=== PATIENT | female | born 1940 | race Caucasian/White ===

== ENCOUNTER → 2016-06-29 | Outpatient (CLI) | payer MEDICARE | END | disposition home or self-care (01) | LOC: LABWHC1 15:33 | PROVIDERS: ATTEND Internal Medicine Critical Care Medicine | DX: J44.9 Chronic obstructive pulmonary disease, unspecified (principal) | CPT/HCPCS: 36415; 71020; 82785; 94060; 95004; 99204 ==

== ENCOUNTER 2019-06-16 11:23 | Observation (INO) | payer MEDICARE, OTHER ==
[2019-06-16 11:59] LABS: Glucose,Whole Blood 112 mg/dL (75-99)
[2019-06-16] MEDS ORDERED: ALBUTEROL NEBULIZED 2.5 MG/3 ML INHALATION STA (11:59)
[2019-06-16] MEDS ORDERED: SODIUM CHLORIDE 0.9% 500 ML 500 ML IV STA (11:59)
[2019-06-16] MEDS ORDERED: IPRATROPIUM-ALBUTEROL 3 ML NEB INHALATION STA (11:59)
[2019-06-16] MEDS ORDERED: methylPREDNISolone SOD SUCCI 125 MG/2 ML VIAL IV STA (12:00)
[2019-06-16 12:17] LABS: Basophils % (A) 0 %; Eosinophils # (A) 0.1 k/uL (0-0.7); Eosinophils % (A) 1 %; HCT 36.5 % (34.0-46.0); Lymphocytes # (A) 1.1 k/uL (1.0-4.8); Lymphocytes % (A) 12 %; MCH 29.7 pg (25.0-35.0); Mean Platelet Volume 7.3; Monocytes # (A) 0.5 k/uL (0-1.0); Monocytes % (A) 6 %; Neutrophils % (A) 79 %; Platelet Count 289 k/uL (150-450); RBC 4.06 m/uL (3.80-5.40); RDW 13.6 % (11.5-15.5); WBC 8.8 k/uL (3.8-10.6)
[2019-06-16 12:26] LABS: ALT 18 U/L (4-34); AST 31 U/L (14-36); African American GFR (CKD) >90 (>60 ml/min/1.73 sqM); Albumin 3.9 g/dL (3.5-5.0); Alkaline Phosphatase 129 U/L (38-126); Anion Gap 11 mmol/L; Blood Urea Nitrogen 15 mg/dL (7-17); Carbon Dioxide 24 mmol/L (22-30); Chloride 101 mmol/L (98-107); Glucose 109 mg/dL (74-99); Magnesium 2.1 mg/dL (1.6-2.3); Non-African American GFR(CKD) >90 (>60 ml/min/1.73 sqM); Sodium 136 mmol/L (137-145)
[2019-06-16 12:29] LABS: Partial Thromboplastin Time 23.7 sec (22.0-30.0)
[2019-06-16 12:30] LABS: Potassium 4.1 mmol/L (3.5-5.1)
--- NOTE | 2019-06-16 12:30 | XR ---
EXAMINATION TYPE: XR chest 2V DATE OF EXAM: 06/16/2019 COMPARISON: Prior chest x-ray 06/29/2016 HISTORY: Weakness and headache, body aches TECHNIQUE: Frontal and lateral views of the chest are obtained. FINDINGS: There is no focal air space opacity, pleural effusion, or pneumothorax seen. The cardiac silhouette size is at the upper limit of normal possibly accentuated by rotation. The osseous struc tures are intact. There are overlying cardiac leads. Surgical clips are present over the anterior anisha st noted on the lateral view likely within the left breast. Aorta is dense. Arthropathy present in th e acromion clavicular joints. IMPRESSION: No acute cardiopulmonary process.
--- NOTE | 2019-06-16 12:34 | ED ---
General Adult HPI - General Chief complaint: Weakness Stated complaint: rt hand numbness, headache Time Seen by Provider: 06/16/19 11:39 Source: patient, RN notes reviewed, old records reviewed Mode of arrival: wheelchair Limitations: no limitations - History of Present Illness Initial comments: 79-year-old female presenting for evaluation of cough, URI symptoms, myalgias. Symptoms have been present for the past 4 days. She had sore throat, nasal co ngestion and productive cough. She experienced an episode of right-sided chest pain yesterday evening. This has resolved. She was initially taking Mucinex with minimal improvement in symptoms. She had 2 episodes of vomiting. No significant abdominal pain. No lower extremity pain or swelling. No history DVT or PE. No history of CAD. - Related Data Home Medications Medication Instructions Recorded Confirmed Anastrozole [Arimidex] 1 mg PO DAILY 06/16/19 06/16/19 Ascorbic Acid [Vitamin C] 500 mg PO DAILY 06/16/19 06/16/19 Atorvastatin [Lipitor] 10 mg PO DAILY 06/16/19 06/16/19 Cholecalciferol [Vitamin D3 (25 1,000 unit PO DAILY 06/16/19 06/16/19 Mcg = 1000 Iu)] Escitalopram [Lexapro] 10 mg PO DAILY 06/16/19 06/16/19 Fluocinolone Acetonide [Lidex Soln] 1 applic TOPICAL BID 06/16/19 06/16/19 Fluticasone/Salmeterol [Advair 1 puff INHALATION RT-BID PRN 06/16/19 06/16/19 500-50 Diskus] Losartan Potassium 50 mg PO DAILY 06/16/19 06/16/19 Montelukast [Singulair] 10 mg PO DAILY 06/16/19 06/16/19 Omeprazole 20 mg PO BID 06/16/19 06/16/19 Vit C/E/Zn/Coppr/Lutein/Zeaxan 1 cap PO BID 06/16/19 06/16/19 [Preservision Areds 2 Softgel] Vitamin B Complex 1 cap PO DAILY 06/16/19 06/16/19 Allergies Allergy/AdvReac Type Severity Reaction Status Date / Time codeine Allergy Unknown Verified 06/16/19 13:19 Review of Systems ROS Statement: Those systems with pertinent positive or pertinent negative responses have been documented in the HPI. ROS Other: All systems not noted in ROS Statement are negative. Past Medical History Past Medical History: Hyperlipidemia, Hypertension History of Any Multi-Drug Resistant Organisms: None Reported Past Surgical History: Appendectomy Additional Past Surgical History / Comment(s): lumpectomy Past Psychological History: No Psychological Hx Reported Smoking Status: Former smoker Past Alcohol Use History: None Reported Past Drug Use History: None Reported General Exam Limitations: no limitations General appearance: alert, in no apparent distress Head exam: Present: atraumatic, normocephalic Eye exam: Present: normal appearance, PERRL ENT exam: Absent: normal oropharynx (Mild pharyngeal erythema) Neck exam: Present: normal inspection, tenderness, full ROM. Absent: meningismus Respiratory exam: Present: decreased breath sounds. Absent: respiratory distress, wheezes, rales, rhonchi Cardiovascular Exam: Present: regular rate, normal rhythm GI/Abdominal exam: Present: soft. Absent: distended, tenderness Extremities exam: Present: normal inspection, normal capillary refill. Absent: pedal edema Neurological exam: Present: alert, oriented X3, CN II-XII intact. Absent: motor sensory deficit Psychiatric exam: Present: normal affect, normal mood Skin exam: Present: warm, dry, intact. Absent: cyanosis, diaphoretic Course Vital Signs 06/16/19 06/16/19 06/16/19 11:34 12:25 12:45 Temperature 98.3 F Pulse Rate 84 74 80 Respiratory 18 Rate Blood Pressure 120/60 O2 Sat by Pulse 95 Oximetry EKG Findings - EKG Comments: EKG Findings:: EKG: Normal sinus rhythm, rate of 81, MT interval 160, QRS duration 84, QTC [address] segment elevation. Medical Decision Making - Medical Decision Making 79-year-old female with cough dyspnea, URI symptoms, flulike symptoms. Influenza is negative. Chest x-ray negative for focal pneumonia. Patient has a normal CBC, normal CMP. She receives breathing treatment, steroids and IV fl uids on reevaluation persistent cough and dyspnea. Will be admitted for COPD exacerbation dehydration. Case discussed with the admitting physician Dr. Dennis. - Lab Data Result diagrams: 06/16/19 11:55 06/16/19 11:55 Lab Results 06/16/19 06/16/19 06/16/19 Range/Units 11:49 11:50 11:55 WBC 8.8 (3.8-10.6) k/uL RBC 4.06 (3.80-5.40) m/uL Hgb 12.0 (11.4-16.0) gm/dL Hct 36.5 (34.0-46.0) % MCV 90.0 (80.0-100.0) fL MCH 29.7 (25.0-35.0) pg MCHC 33.0 (31.0-37.0) g/dL RDW 13.6 (11.5-15.5) % Plt Count 289 (150-450) k/uL Neutrophils % 79 % Lymphocytes % 12 % Monocytes % 6 % Eosinophils % 1 % Basophils % 0 % Neutrophils # 7.0 (1.3-7.7) k/uL Lymphocytes # 1.1 (1.0-4.8) k/uL Monocytes # 0.5 (0-1.0) k/uL Eosinophils # 0.1 (0-0.7) k/uL Basophils # 0.0 (0-0.2) k/uL PT (9.0-12.0) sec INR (<1.2) APTT (22.0-30.0) sec Sodium (137-145) mmol/L Potassium (3.5-5.1) mmol/L Chloride (98-107) mmol/L Carbon Dioxide (22-30) mmol/L Anion Gap mmol/L BUN (7-17) mg/dL Creatinine (0.52-1.04) mg/dL Est GFR (CKD-EPI)AfAm (>60 ml/min/1.73 sqM) Est GFR (CKD-EPI)NonAf (>60 ml/min/1.73 sqM) Glucose (74-99) mg/dL POC Glucose (mg/dL) 112 H (75-99) mg/dL POC Glu [employer] Installer ID Mali Iniguez Plasma Lactic Acid Oliver (0.7-2.0) mmol/L Calcium (8.4-10.2) mg/dL Magnesium (1.6-2.3) mg/dL Total Bilirubin (0.2-1.3) mg/dL AST (14-36) U/L ALT (4-34) U/L Alkaline Phosphatase (38-126) U/L Troponin I (0.000-0.034) ng/mL Total Protein (6.3-8.2) g/dL Albumin (3.5-5.0) g/dL Influenza Type A RNA Not Detected (Not Detectd) Influenza Type B (PCR) Not Detected (Not Detectd) 06/16/19 06/16/19 06/16/19 Range/Units 11:55 11:55 11:55 WBC (3.8-10.6) k/uL RBC (3.80-5.40) m/uL Hgb (11.4-16.0) gm/dL Hct (34.0-46.0) % MCV (80.0-100.0) fL MCH (25.0-35.0) pg MCHC (31.0-37.0) g/dL RDW (11.5-15.5) % Plt Count (150-450) k/uL Neutrophils % % Lymphocytes % % Monocytes % % Eosinophils % % Basophils % % Neutrophils # (1.3-7.7) k/uL Lymphocytes # (1.0-4.8) k/uL Monocytes # (0-1.0) k/uL Eosinophils # (0-0.7) k/uL Basophils # (0-0.2) k/uL PT 10.0 (9.0-12.0) sec INR 1.0 (<1.2) APTT 23.7 (22.0-30.0) sec Sodium 136 L (137-145) mmol/L Potassium 4.1 (3.5-5.1) mmol/L Chloride 101 (98-107) mmol/L Carbon Dioxide 24 (22-30) mmol/L Anion Gap 11 mmol/L BUN 15 (7-17) mg/dL Creatinine 0.55 (0.52-1.04) mg/dL Est GFR (CKD-EPI)AfAm >90 (>60 ml/min/1.73 sqM) Est GFR (CKD-EPI)NonAf >90 (>60 ml/min/1.73 sqM) Glucose 109 H (74-99) mg/dL POC Glucose (mg/dL) (75-99) mg/dL POC Glu Home [employer] Installer ID Plasma Lactic Acid Oliver 0.9 (0.7-2.0) mmol/L Calcium 9.0 (8.4-10.2) mg/dL Magnesium 2.1 (1.6-2.3) mg/dL Total Bilirubin 1.0 (0.2-1.3) mg/dL AST 31 (14-36) U/L ALT 18 (4-34) U/L Alkaline Phosphatase 129 H (38-126) U/L Troponin I (0.000-0.034) ng/mL Total Protein 7.0 (6.3-8.2) g/dL Albumin 3.9 (3.5-5.0) g/dL Influenza Type A RNA (Not Detectd) Influenza Type B (PCR) (Not Detectd) 06/16/19 Range/Units 11:55 WBC (3.8-10.6) k/uL RBC (3.80-5.40) m/uL Hgb (11.4-16.0) gm/dL Hct (34.0-46.0) % MCV (80.0-100.0) fL MCH (25.0-35.0) pg MCHC (31.0-37.0) g/dL RDW (11.5-15.5) % Plt Count (150-450) k/uL Neutrophils % % Lymphocytes % % Monocytes % % Eosinophils % % Basophils % % Neutrophils # (1.3-7.7) k/uL Lymphocytes # (1.0-4.8) k/uL Monocytes # (0-1.0) k/uL Eosinophils # (0-0.7) k/uL Basophils # (0-0.2) k/uL PT (9.0-12.0) sec INR (<1.2) APTT (22.0-30.0) sec Sodium (137-145) mmol/L Potassium (3.5-5.1) mmol/L Chloride (98-107) mmol/L Carbon Dioxide (22-30) mmol/L Anion Gap mmol/L BUN (7-17) mg/dL Creatinine (0.52-1.04) mg/dL Est GFR (CKD-EPI)AfAm (>60 ml/min/1.73 sqM) Est GFR (CKD-EPI)NonAf (>60 ml/min/1.73 sqM) Glucose (74-99) mg/dL POC Glucose (mg/dL) (75-99) mg/dL POC Glu Home [employer] Installer ID Plasma Lactic Acid Oliver (0.7-2.0) mmol/L Calcium (8.4-10.2) mg/dL Magnesium (1.6-2.3) mg/dL Total Bilirubin (0.2-1.3) mg/dL AST (14-36) U/L ALT (4-34) U/L Alkaline Phosphatase (38-126) U/L Troponin I <0.012 (0.000-0.034) ng/mL Total Protein (6.3-8.2) g/dL Albumin (3.5-5.0) g/dL Influenza Type A RNA (Not Detectd) Influenza Type B (PCR) (Not Detectd) Disposition Clinical Impression: Dehydration, COPD (chronic obstructive pulmonary disease) Disposition: ADMITTED IP TO THIS HOSP Condition: Stable Is patient prescribed a controlled substance at d/c from ED?: No Referrals: Marcell Jackson DO [Primary Care Provider] - 1-2 days Decision to Admit Reason: Admit from EC Decision Date: 06/16/19 Decision Time: 13:34
[2019-06-16] MEDS ORDERED: IPRATROPIUM-ALBUTEROL 3 ML NEB INHALATION PRN (13:29)
[2019-06-16] MEDS: SODIUM CHLORIDE 0.9% 1,000 ML IV SCH (13:52)
[2019-06-16] MEDS ORDERED: LEVOFLOXACIN 500 MG TAB PO SCH (14:00)
[2019-06-16] MEDS ORDERED: ACETAMINOPHEN TAB 325 MG TAB PO PRN (15:42)
[2019-06-16] MEDS: IPRATROPIUM-ALBUTEROL 3 ML NEB INHALATION SCH ×2 (15:59→19:58)
[2019-06-16 17:00] LABS: Glucose,Whole Blood 151 mg/dL (75-99)
[2019-06-16] MEDS: VIT A,C & E-LUTEIN-MINERALS 1 EACH TAB PO SCH (20:39)
--- NOTE | 2019-06-16 23:21 | P.HPIM ---
History of Present Illness H&P Date: 06/16/19 Chief Complaint: Weak and tired History of presenting complaint: This is a very pleasant [address] Jackson. Chronic stable medical conditions include hypertension, hyperlipidemia, depression, asthma. Patient returned from [place] 10 days ago. Following day she started getting a headache and the following day she felt tired the following day she was ruddy ested in the chest with the cough and some mucus production having significant lower nausea. Started having fever and chills. Body was aching. Also sore throat. [place] totally tired rundown but decreased oral intake. Feeling exhausted. Came to the ER given IV fluids which she started feeling much better. Review of systems: GEN.: Tired EYES: None HEENT: None NECK: None RESPIRATORY: As above CARDIOVASCULAR: None GASTROINTESTINAL: None GENITOURINARY: None MUSCULOSKELETAL: [Muscle achiness LYMPHATICS: None HEMATOLOGICAL: None PSYCHIATRY: None NEUROLOGICAL: None Past medical history to include: Hypertension, hyperlipidemia, depression, left-sided breast cancer treated with radiation treatment and surgery asthma Social history: This is a granddaughter, smoked up to 3 packs a day for 40 years stopped about 20 years ago. No alcohol. Physical examination: VITAL SIGNS: 98.3, 84, 18, 120/60, 95% on room air GENERAL: BMI 30.8 laying in bed awake. EYES: Pupils equal. Conjunctiva normal. HEENT: External appearance of nose and ears normal, oral cavity grossly normal. NECK: JVD not raised; masses not palpable. HEART: First and second heart sounds are normal; no edema. LUNGS: Respiratory rate normal; decreased breath sounds. ABDOMEN: Soft, nontender, liver spleen not palpable, no masses palpable. PSYCH: [Alert and oriented x3; mood and affect retired l. NEUROLOGICAL: Cranial nerves grossly intact; no facial asymmetry, power and sensation grossly intact. LYMPHATICS: No lymph nodes palpable in the axilla and neck INVESTIGATIONS, reviewed in the clinical context: White count 8.8 hemoglobin 12 platelets 29 potassium 4.1 creatinine 0.55 Influenza type A and type B both negative EKG tracing personally reviewed by me-normal sinus rhythm Chest x-ray film personally reviewed by me-no obvious infiltrate Assessment: -This is a patient is at 6 days of fever /chills headaches tired congested cough mucus production nausea and decreased appetite fever and chills. Describing a viral syndrome. Patient's possibly no having opposed well syndrome. Is feeling better with IV fluids. Currently no fever no white count. Continue antibiotics as patient already feeling better with IV fluids. Patient denied exposure to insects or insect bites. Patient is mostly at home at her nephew's place and [place]. Only went out for dinner twice. -Essential hypertension -Hyperlipidemia -Depression otherwise specified -Mild persistent asthma -Clinical dehydration Plan: Home medications to be resumed IV fluids to continue. Lovenox for DVT prophylaxis. Patient is feeling much better with IV fluids. Encouraged to ambulate. Past Medical History Past Medical History: Hyperlipidemia, Hypertension History of Any Multi-Drug Resistant Organisms: None Reported Past Surgical History: Appendectomy Additional Past Surgical History / Comment(s): lumpectomy left breast for cancer finished with radiation treatments 2017. Past Anesthesia/Blood Transfusion Reactions: No Reported Reaction Past Psychological History: No Psychological Hx Reported Smoking Status: Former smoker Past Alcohol Use History: None Reported Past Drug Use History: None Reported - Past Family History Father Family Medical History: Cancer Additional Family Medical History / Comment(s): lung ca Mother Additional Family Medical History / Comment(s): parkinson Sister(s) Family Medical History: Cancer Additional Family Medical History / Comment(s): 9 siblings, 3 have . 2 sist ers had breast CA, one sister had spinal CA. one sister had lung CA. one Brother dies of parkinsons, one brother has kidney problems and heart failure aicd/pacer. Medications and Allergies Home Medications Medication Instructions Recorded Confirmed Type Anastrozole [Arimidex] 1 mg PO DAILY 06/16/19 06/16/19 History Ascorbic Acid [Vitamin C] 500 mg PO DAILY 06/16/19 06/16/19 History Atorvastatin [Lipitor] 10 mg PO DAILY 06/16/19 06/16/19 History Cholecalciferol [Vitamin D3 (25 1,000 unit PO DAILY 06/16/19 06/16/19 History Mcg = 1000 Iu)] Escitalopram [Lexapro] 10 mg PO DAILY 06/16/19 06/16/19 History Fluocinolone Acetonide [Lidex Soln] 1 applic TOPICAL BID 06/16/19 06/16/19 History Fluticasone/Salmeterol [Advair 1 puff INHALATION RT-BID PRN 06/16/19 06/16/19 History 500-50 Diskus] Losartan Potassium 50 mg PO DAILY 06/16/19 06/16/19 History Montelukast [Singulair] 10 mg PO DAILY 06/16/19 06/16/19 History Omeprazole 20 mg PO BID 06/16/19 06/16/19 History Vit C/E/Zn/Coppr/Lutein/Zeaxan 1 cap PO BID 06/16/19 06/16/19 History [Preservision Areds 2 Softgel] Vitamin B Complex 1 cap PO DAILY 06/16/19 06/16/19 History Allergies Allergy/AdvReac Type Severity Reaction Status Date / Time codeine Allergy Unknown Verified 06/16/19 13:19 Physical Exam Vitals: Vital Signs Temp Pulse Pulse Resp BP BP Pulse Ox 06/16/19 20:08 78 06/16/19 19:58 77 06/16/19 16:11 77 06/16/19 15:59 76 06/16/19 14:47 99.2 F 83 18 107/50 94 L 06/16/19 13:52 88 16 118/56 99 06/16/19 12:45 80 06/16/19 12:25 74 06/16/19 11:34 98.3 F 84 18 120/60 95 Intake and Output 06/16/19 06/16/19 06/17/19 14:59 22:59 06:59 Intake Total 540 Balance 540 Intake: Oral 540 Other: Weight 86.636 kg Results CBC & Chem 7: 06/16/19 11:55 06/16/19 11:55 Labs: Abnormal Lab Results - Last 24 Hours (Table) 06/16/19 06/16/19 06/16/19 Range/Units 11:49 11:55 16:50 Sodium 136 L (137-145) mmol/L Glucose 109 H (74-99) mg/dL POC Glucose (mg/dL) 112 H 151 H (75-99) mg/dL Alkaline Phosphatase 129 H (38-126) U/L Thrombosis Risk Factor Assmnt - Choose All That Apply Each Risk Factor Represents 3 Points: Age 75 years or older Thrombosis Risk Factor Assessment Total Risk Factor Score: 3 Thrombosis Risk Factor Assessment Level: Moderate Risk
[2019-06-17] MEDS: SODIUM CHLORIDE 0.9% 1,000 ML IV SCH (02:38)
[2019-06-17 07:20] VITALS: BP 124/63; RESP 18; TEMP 98.2
[2019-06-17] MEDS ORDERED: PANTOPRAZOLE 40 MG TABLET PO SCH (07:30)
[2019-06-17] MEDS: VIT A,C & E-LUTEIN-MINERALS 1 EACH TAB PO SCH (07:50)
[2019-06-17] MEDS: IPRATROPIUM-ALBUTEROL 3 ML NEB INHALATION SCH ×2 (08:59→12:08)
[2019-06-17] MEDS ORDERED: ATORVASTATIN 10 MG TAB PO SCH (09:00)
[2019-06-17] MEDS ORDERED: ENOXAPARIN 40 MG/0.4 ML SYRINGE SQ SCH (09:00)
[2019-06-17] MEDS ORDERED: predniSONE 20 MG TAB PO SCH (09:00)
[2019-06-17] MEDS ORDERED: NON FORMULARY DRUG (Vitamin B Complex [Vitamin B Complex] 1 CAP) PO SCH (09:00)
[2019-06-17] MEDS ORDERED: MONTELUKAST 10 MG TAB PO SCH (09:00)
[2019-06-17] MEDS ORDERED: ANASTROZOLE 1 MG TAB PO SCH (09:00)
[2019-06-17] MEDS ORDERED: ESCITALOPRAM 10 MG TAB PO SCH (09:00)
[2019-06-17] MEDS ORDERED: ASCORBIC ACID 500 MG TAB PO SCH (09:00)
[2019-06-17] MEDS ORDERED: CHOLECALCIFEROL 1,000 UNIT TAB PO SCH (09:00)
[2019-06-17] MEDS ORDERED: LOSARTAN 50 MG TAB PO SCH (09:00)
[2019-06-17 12:18] VITALS: PULSE 77
--- NOTE | 2019-06-17 22:41 | P.DS ---
Providers Date of admission: 06/16/19 13:29 Expected date of discharge: 06/17/19 Attending physician: Darion Dennis Primary care physician: Marcell Christianson [facility] Course: Chief Complaint: Weak and tired History of presenting complaint: This is a very pleasant [address] Jackson. Chronic stable medical conditions include hypertension, hyperlipidemia, depression, asthma. Patient returned from [place] 10 days ago. Following day she started getting a headache and the following day she felt tired the following day she was congested in the chest with the cough and some mucus production having significant lower nausea. Started having fever and chills. Body was aching. Also sore throat. [place] totally tired rundown but decreased oral intake. Feeling exhausted. Came to the ER given IV fluids which she started feeling much better. Admitted with a diagnosis of acute viral syndrome. Responded well to IV fluids. No need was felt antibiotics. By The time of discharge.-Back to baseline. Up and about. Tolerated diet. symptoms are completely resolved. Discussed in detail the patient. Including some mild asthma exacerbation Discussion and discharge planning more than 35 minutes Physical examination: VITAL SIGNS: 98.2, 72, 18, 124/63, 94% on room air GENERAL: Sitting up, comfortable. EYES: Pupils equal. Conjunctiva normal. HEENT: External appearance of nose and ears normal, oral cavity grossly normal. NECK: JVD not raised; masses not palpable. HEART: First and second heart sounds are normal; no edema. LUNGS: Respiratory rate normal; decreased breath sounds. ABDOMEN: Soft, nontender, liver spleen not palpable, no masses palpable. PSYCH: [Alert and oriented x3; mood and affect retired l. INVESTIGATIONS, reviewed in the clinical context: White count 8.8 hemoglobin 12 platelets 29 potassium 4.1 creatinine 0.55 Influenza type A and type B both negative EKG tracing personally reviewed by me-normal sinus rhythm Chest x-ray film personally reviewed by me-no obvious infiltrate Assessment: -Acute viral syndrome with systemic features. -Essential hypertension -Hyperlipidemia -Depression otherwise specified -Mild persistent asthma-exacerbation -Clinical dehydration Disposition: Home Patient Condition at Discharge: Stable Plan - Discharge Summary Discharge Rx Participant: No New Discharge Prescriptions: New Ipratropium [place] [Atrovent Hfa] 2 puff INHALATION TID #1 inhaler predniSONE 0 mg PO DIRECTED #12 tab Albuterol Inhaler [Ventolin Hfa Inhaler] 1 - 2 puff INHALATION RT-Q6H PRN #1 inhaler PRN Reason: Wheezing Continue Anastrozole [Arimidex] 1 mg PO DAILY Vit C/E/Zn/Coppr/Lutein/Zeaxan [Preservision Areds 2 Softgel] 1 cap PO BID Cholecalciferol [Vitamin D3 (25 Mcg = 1000 Iu)] 1,000 unit PO DAILY Ascorbic Acid [Vitamin C] 500 mg PO DAILY Omeprazole 20 mg PO BID Montelukast [Singulair] 10 mg PO DAILY Losartan Potassium 50 mg PO DAILY Fluocinolone Acetonide [Lidex Soln] 1 applic TOPICAL BID Escitalopram [Lexapro] 10 mg PO DAILY Atorvastatin [Lipitor] 10 mg PO DAILY Fluticasone/Salmeterol [Advair 500-50 Diskus] 1 puff INHALATION RT-BID PRN PRN Reason: Shortness Of Breath Vitamin B Complex 1 cap PO DAILY Discharge Medication List Anastrozole [Arimidex] 1 mg PO DAILY 06/16/19 [History] Ascorbic Acid [Vitamin C] 500 mg PO DAILY 06/16/19 [History] Atorvastatin [Lipitor] 10 mg PO DAILY 06/16/19 [History] Cholecalciferol [Vitamin D3 (25 Mcg = 1000 Iu)] 1,000 unit PO DAILY 06/16/19 [History] Escitalopram [Lexapro] 10 mg PO DAILY 06/16/19 [History] Fluocinolone Acetonide [Lidex Soln] 1 applic TOPICAL BID 06/16/19 [History] Fluticasone/Salmeterol [Advair 500-50 Diskus] 1 puff INHALATION RT-BID PRN 06/16/19 [History] Losartan Potassium 50 mg PO DAILY 06/16/19 [History] Montelukast [Singulair] 10 mg PO DAILY 06/16/19 [History] Omeprazole 20 mg PO BID 06/16/19 [History] Vit C/E/Zn/Coppr/Lutein/Zeaxan [Preservision Areds 2 Softgel] 1 cap PO BID 06/16/19 [History] Vitamin B Complex 1 cap PO DAILY 06/16/19 [History] Albuterol Inhaler [Ventolin Hfa Inhaler] 1 - 2 puff INHALATION RT-Q6H PRN #1 inhaler 06/17/19 [Rx] Ipratropium [place] [Atrovent Hfa] 2 puff INHALATION TID #1 inhaler 06/17/19 [Rx] predniSONE 0 mg PO DIRECTED #12 tab 06/17/19 [Rx] Follow up Appointment(s)/Referral(s): Marcell Jackson DO [Primary Care Provider] - 1-2 days (office will call you with date and time.) Patient Instructions/Handouts: COPD (Chronic Obstructive Pulmonary Disease) (DC) Discharge Disposition: HOME SELF-CARE
== END 2019-06-17 12:51 | disposition home or self-care (01) ==
LOC: EC 11:23 → 6NMEDSUR 13:29
PROVIDERS: ADMIT Hospitalist; ATTEND Hospitalist
DX: B34.9 Viral infection, unspecified (principal); E86.0 Dehydration; J45.30 Mild persistent asthma, uncomplicated; J44.9 Chronic obstructive pulmonary disease, unspecified; I10 Essential (primary) hypertension; E78.5 Hyperlipidemia, unspecified; Z87.891 Personal history of nicotine dependence; F32.9 Major depressive disorder, single episode, unspecified; Z90.49 Acquired absence of other specified parts of digestive tract; Z85.3 Personal history of malignant neoplasm of breast; Z92.3 Personal history of irradiation; Z79.51 Long term (current) use of inhaled steroids; Z79.899 Other long term (current) drug therapy; Z88.5 Allergy status to narcotic agent; Z80.1 Family history of malignant neoplasm of trachea, bronchus and lung; Z80.3 Family history of malignant neoplasm of breast; Z84.1 Family history of disorders of kidney and ureter; Z82.49 Family history of ischemic heart disease and other diseases of the circulatory system; Z82.0 Family history of epilepsy and other diseases of the nervous system
CPT/HCPCS: 96361; 96372; 96374; 99285; 36415; 94640 ×4; 93005; 80053; 83605; 83735; 84484; 85025; 85610; 85730; 87502; 71046; G0378 ×2; J2930; J1650; S0170; J7512

== ENCOUNTER → 2024-03-06 | Outpatient (CLI) | payer MEDICARE ==
--- NOTE | 2024-03-09 21:57 | PE ---
EXAMINATION TYPE: PET CT fusion skull to thigh DATE OF EXAM: 03/06/2024 COMPARISON: No recent pertinent CT Prior PET/CT: No prior at this location CLINICAL INDICATION: Female, 84 years old with history of C50.812 BREAST CANCER, TECHNIQUE: Following the intravenous administration of 10.98 mCi of F-18 FDG, whole body images are performed from the skull base to the midthigh. Images are reviewed on the computer in the coronal, a xial, and sagittal planes. Reconstructed rotating images are created on independent workstation and reviewed on the computer. A localization and attenuation correction CT is performed in conjunction with the PET scan. DLP: 527.76 mGycm SCAN: Initial Blood glucose: 103 mg/dL Average Mediastinum SUV: 3.29 Average Liver SUV: 3.73 FINDINGS: NECK: No suspicious uptake THORAX: No suspicious uptake ABDOMEN: No suspicious uptake PELVIS: There is a punctate area of uptake just anterior to the left of the pubic symphysis, image 21 9, SUV 4.04. Small lymph node is not excluded. OSSEOUS STRUCTURES: No suspicious uptake LOCALIZATION CT: Patient has a left mastectomy. The punctate area of uptake near the pubic symphysis may be within musculature. COMPARISON: IMPRESSION: 1. No suspicious uptake to suggest recurrent or metastatic breast cancer. 2. Small punctate area near the pubic symphysis may be within musculature [facility], , 03/09/2024 9:54 PM
== END | disposition home or self-care (01) ==
LOC: RADPETMAIN 11:09
PROVIDERS: ATTEND Internal Medicine Hematology & Oncology
DX: C50.812 Malignant neoplasm of overlapping sites of left female breast (principal)
CPT/HCPCS: 78815; A9552

== ENCOUNTER 2024-09-13 21:05 | Inpatient (IN) | payer MEDICARE ==
[2024-09-13] MEDS: SODIUM CHLORIDE 0.9% 1,000 ML IV ONE (21:30)
--- NOTE | 2024-09-13 21:31 | ED ---
Dizziness HPI - General Chief Complaint: Syncope Stated Complaint: Syncope,ELOISA Time Seen by Provider: 09/13/24 21:09 Source: EMS Mode of arrival: EMS Limitations: physical limitation - History of Present Illness Initial Comments: This patient is an 84-year-old woman brought by EMS to have evaluation for not feeling well. Patient is not able to give much history. She states that she just does not feel well. When further questioned she will begin a sentence and then taper off and state "I just do not feel well." The patient does complain of dyspnea. She is denying pains other than some generalized headache. She states that she has not been feeling well since she had left the hospital. Her symptoms worsened tonight in the evening while she had been sitting in her chair at home. She had been admitted at a different hospital for hyponatremia and been discharged last week. She denies focal weakness. She has nausea but has not had vomiting. History is otherwise limited as patient not participating in history and physical. MD Complaint: near syncope -: hour(s) Timing: gradual onset Description: near-syncope Severity: severe Worsens With: movement Associated Symptoms: shortness of breath, other (Headache) - Related Data Home Medications Medication Instructions Recorded Confirmed Montelukast [Singulair] 10 mg PO HS 06/16/19 09/14/24 Omeprazole 20 mg PO AC-BID 06/16/19 09/14/24 Vit C/E/Zn/Coppr/Lutein/Zeaxan 1 cap PO BID 06/16/19 09/14/24 [Preservision Areds 2 Softgel] Abemaciclib [Verzenio] 100 mg PO BID 09/14/24 09/14/24 Calcium 2,000mg 2,000 mg PO HS 09/14/24 09/14/24 Cholecalciferol (Vitamin D3) 50 mcg PO DAILY 09/14/24 09/14/24 [Vitamin D3 (50 Mcg = 2000 Iu)] DULoxetine HCL [Cymbalta] 30 mg PO BID 09/14/24 09/14/24 Ezetimibe [Zetia] 10 mg PO DAILY 09/14/24 09/14/24 Fluocinonide 0.05% Solution 1 applic TOPICAL HS 09/14/24 09/14/24 Fulvestrant 500 mg IM Q35D 09/14/24 09/16/24 Losartan Potassium 100 mg PO DAILY 09/14/24 09/14/24 Melatonin 10 mg PO HS 09/14/24 09/14/24 Ondansetron Odt [Zofran ODT] 8 mg PO DAILY 09/14/24 09/14/24 Previous Rx's Medication Instructions Recorded Acetaminophen Tab [Tylenol] 650 mg PO Q6HR PRN tab 09/18/24 Lidocaine 4% Patch 1 patch TOPICAL DAILY #30 patch 09/18/24 cefuroxime axetiL [Ceftin] 500 mg PO BID 7 Days #14 tab 09/18/24 Sodium Chloride Tab 1 gm PO BID #6 tablet 09/19/24 Sodium Chloride Tab 1 gm PO BID #6 tablet 09/19/24 predniSONE [Deltasone] 20 mg PO BID #8 tab 09/19/24 predniSONE [Deltasone] 20 mg PO BID #8 tab 09/19/24 Allergies Allergy/AdvReac Type Severity Reaction Status Date / Time codeine Allergy Unknown Verified 09/14/24 09:08 Review of Systems ROS Statement: Those systems with pertinent positive or pertinent negative responses have been documented in the HPI. ROS Other: All systems not noted in ROS Statement are negative. Constitutional: Reports: weakness. Denies: fever, chills Eyes: Denies: eye pain Respiratory: Reports: dyspnea. Denies: cough Cardiovascular: Denies: chest pain Gastrointestinal: Reports: nausea. Denies: abdominal pain, vomiting Musculoskeletal: Denies: back pain Neurological: Reports: headache. Denies: weakness Past Medical History Past Medical History: Hyperlipidemia, Hypertension History of Any Multi-Drug Resistant Organisms: None Reported Past Surgical History: Appendectomy Additional Past Surgical History / Comment(s): lumpectomy left breast for cancer finished with radiation treatments 2017. Past Anesthesia/Blood Transfusion Reactions: No Reported Reaction Past Psychological History: No Psychological Hx Reported Past Alcohol Use History: None Reported Past Drug Use History: None Reported - Past Family History Father Family Medical History: Cancer Additional Family Medical History / Comment(s): lung ca Mother Additional Family Medical History / Comment(s): parkinson Sister(s) Family Medical History: Cancer Additional Family Medical History / Comment(s): 9 siblings, 3 have . 2 sisters had breast CA, one sister had spinal CA. one sister had lung CA. one Brother dies of parkinsons, one brother has kidney problems and heart failure aicd/pacer. General Exam Limitations: no limitations General appearance: alert, in no apparent distress Head exam: Present: atraumatic, normocephalic Eye exam: Present: normal appearance, PERRL, EOMI. Absent: scleral icterus, conjunctival injection ENT exam: Present: mucous membranes dry Neck exam: Present: normal inspection, full ROM. Absent: tenderness Respiratory exam: Present: normal lung sounds bilaterally. Absent: respiratory distress, wheezes, rales, rhonchi, stridor, accessory muscle use Cardiovascular Exam: Present: regular rate, normal rhythm, normal heart sounds. Absent: systolic murmur, diastolic murmur, rubs, gallop GI/Abdominal exam: Present: soft. Absent: distended, tenderness, guarding, rebound, rigid, mass Extremities exam: Present: normal inspection, normal capillary refill. Absent: pedal edema, calf tenderness Back exam: Present: normal inspection. Absent: CVA tenderness (R), CVA te nderness (L), vertebral tenderness Neurological exam: Present: alert, oriented X3. Absent: motor sensory deficit Skin exam: Present: warm, dry, intact, normal color. Absent: rash Course Vital Signs 09/13/24 09/13/24 09/14/24 21:16 23:30 00:45 Temperature 98.4 F 100.5 F H Pulse Rate 72 68 73 Respiratory 20 18 16 Rate Blood Pressure 108/53 102/66 98/67 O2 Sat by Pulse 99 98 99 Oximetry 09/14/24 09/14/24 09/14/24 01:15 02:00 03:30 Temperature 99.9 F H Pulse Rate 99 93 99 Respiratory 20 20 22 Rate Blood Pressure 123/53 124/77 121/57 O2 Sat by Pulse 98 98 96 Oximetry 09/14/24 09/14/24 09/14/24 05:00 06:00 08:07 Temperature 98.7 F 98.3 F Pulse Rate 94 104 H 93 Respiratory 20 13 20 Rate Blood Pressure 93/42 115/51 116/53 O2 Sat by Pulse 99 94 L 96 Oximetry 09/14/24 09/14/24 09:30 10:28 Temperature 98.4 F Pulse Rate 95 97 Respiratory 20 20 Rate Blood Pressure 116/56 129/65 O2 Sat by Pulse 96 96 Oximetry EKG Findings - EKG Results: EKG: interpreted by ERMD, sinus rhythm (With occasional PVC), normal axis, normal QRS EKG shows: tachycardia (Rate 108 bpm) - Blocks, Olden, Hypertrophy, ST Abn: Repolarization changes or abnormalities: nonspecific abnormality, ST segment, and/or T wave Procedures - Sepsis Sepsis Focused Exam #1 Sepsis Focused Exam Date: 09/14/24 Sepsis Focused Exam Time: 03:30 Sepsis Focused Exam Complete: Yes Vital Signs & RN Notes Reviewed: Yes Capillary Refill: < 2 Seconds: Fingers Peripheral Pulses: Normal: Radial (R) Skin Color: Normal for Patient Respiratory Exam: normal lung sounds Cardiovascular Exam: regular rate, normal rhythm Medical Decision Making - Medical Decision Making The patient had CT scan of the brain that I interpreted as negative for acute intracranial hemorrhage, no mass effect or midline shift. The patient had chest x-ray that I interpreted as negative for acute infiltrate, and pneumothorax, congestive heart failure. The patient had CT scan of the chest that I interpreted as negative for acute pulmonary embolism. Was pt. sent in by a medical professional or institution ([facility], [employer], urgent care, hospital, or assisted...) When possible be specific @ -[No] Did you speak to anyone other than the patient for history (EMS, parent, family, police, friend...)? What history was obtained from this source @ -[No] Did you review nursing and triage notes (agree or disagree)? Why? @ -[I reviewed and agree with nursing and triage notes] Were old charts reviewed (outside hosp., previous admission, EMS record, old EKG, old radiological studies, urgent care reports/EKG's, assisted records)? Report findings @ -[No old charts were reviewed] Differential Diagnosis (chest pain, altered mental status, abdominal pain women, abdominal pain men, vaginal bleeding, weakness, fever, dyspnea, syncope, headache, dizziness, GI bleed, back pain, seizure, CVA, palpatations, mental health, musculoskeletal)? @ -[not applicable] EKG interpreted by me (3pts min.). @ -[I interpreted as above] X-rays interpreted by me (1pt min.). @ -[I interpreted as above CT interpreted by me (1pt min.). @ -[I interpreted as above U/S interpreted by me (1pt. min.). @ -[None done] What testing was considered but not performed or refused? (CT, X-rays, U/S, labs)? Why? @ -[None] What meds were considered but not given or refused? Why? @ -[None] Did you discuss the management of the patient with other professionals (professionals i.e. , PA, [employer] DEVELOPER, lab, RT, psych nurse, vp digital marketing social media and crm, mortar mixer, teacher, tourist information officer, correctional counselor/case manager)? Give summary @ -[Case discussed with admitting physician and treatment recommendations incorporated Was smoking cessation discussed for >3mins.? @ -[No] Was critical care preformed (if so, how long)? @ -[Yes, 35 minutes Were there social determinants of health that impacted care today? How? (Homelessness, low income, unemployed, alcoholism, drug addiction, transportation, low edu. Level, literacy, decrease access to med. care, care home, rehab)? @ -[No] Was there de-escalation of care discussed even if they declined (Discuss DNR or withdrawal of care, Hospice)? DNR status @ -[No] What co-morbidities impacted this encounter? (DM, HTN, Smoking, COPD, CAD, Cancer, CVA, ARF, Chemo, Hep., AIDS, mental health diagnosis, sleep apnea, morbid obesity)? @ -[None] Was patient admitted / discharged? Hospital course, mention meds given and route, prescriptions, significant lab abnormalities, going to OR and other pertinent info. @ -[Patient is 84-year-old here with altered mental status and found to have urinary tract infection with associated sepsis. Patient started on antibiotics and IV fluids and admitted for further treatment Undiagnosed new problem with uncertain prognosis? @ - Drug Therapy requiring intensive monitoring for toxicity (Heparin, Nitro, Insulin, Cardizem)? @ -[No] Were any procedures done? @ -[No] Diagnosis/symptom? @ -[ Acute urinary tract infection Acute lactic acidosis Acute sepsis Altered mental status Acute, or Chronic, or Acute on Chronic? @ -[Acute Uncomplicated (without systemic symptoms) or Complicated (systemic symptoms)? @ -[Complicated by altered mental status Side effects of treatment? @ -[No] Exacerbation, Progression, or Severe Exacerbation? @ -[No] Poses a threat to life or bodily function? How? (Chest pain, [place], [place], pneumonia, PE, COPD, DKA, ARF, appy, cholecystitis, CVA, Diverticulitis, Homicidal, Suicidal, threat to staff... and all critical care pts) @ -[Yes, there is significant risk of morbidity and mortality associated with sepsis All treatments are based on ideal body weight as in ED triage - Lab Data Result diagrams: 09/17/24 03:14 09/18/24 05:26 Lab Results 09/13/24 09/13/24 09/13/24 Range/Units 22:19 22:19 22:19 WBC 4.98 (4.50-10.00) 10*3/uL RBC 3.29 L (4.10-5.20) 10*6/uL Hgb 11.0 L (12.0-15.0) g/dL Hct 32.4 L (37.2-46.3) % MCV 98.5 H (80.0-97.0) fL MCH 33.4 H (27.0-32.0) pg MCHC 34.0 (32.0-37.0) g/dL Plt Count 193 (140-440) 10*3/uL MPV 10.0 (9.5-12.2) fL Immature Gran % (Auto) 0.8 % Neutrophils % 86.8 % Lymphocytes % 11.6 % Monocytes % 0.4 % Eosinophils % 0.2 % Basophils % 0.2 % Immature Gran # 0.04 (0.00-0.04) 10*3/uL Neutrophils # 4.32 (1.80-7.70) 10*3/uL Lymphocytes # 0.58 L (0.90-5.00) 10*3/uL Monocytes # 0.02 L (0.20-1.00) 10*3/uL Eosinophils # 0.01 L (0.04-0.35) 10*3/uL Basophils # 0.01 (0.00-0.10) 10*3/uL PT (10.0-12.5) sec INR (<1.2) APTT (22.0-30.0) sec D-Dimer (<0.60) mg/L FEU Sodium 130 L (137-145) mmol/L Potassium 4.3 (3.5-5.1) mmol/L Chloride 100 (98-107) mmol/L Carbon Dioxide 18 L (22-30) mmol/L Anion Gap 12 mmol/L BUN 24 H (7-17) mg/dL Creatinine 1.25 H (0.52-1.04) mg/dL Est GFR (CKD-EPI)AfAm 46 (>60 ml/min/1.73 sqM) Est GFR (CKD-EPI)NonAf 40 (>60 ml/min/1.73 sqM) Glucose 86 (74-99) mg/dL Lactic Ac Sepsis Rflx Plasma Lactic Acid Oliver (0.7-2.0) mmol/L Calcium 9.0 (8.4-10.2) mg/dL Total Bilirubin 1.3 (0.2-1.3) mg/dL AST 30 (14-36) U/L ALT 22 (4-34) U/L Alkaline Phosphatase 52 (38-126) U/L Troponin I <0.012 (0.000-0.034) ng/mL NT-Pro-B Natriuret Pep 194 pg/mL Total Protein 6.4 (6.3-8.2) g/dL Albumin 3.8 (3.5-5.0) g/dL Urine Color Urine Appearance (Clear) Urine pH (5.0-8.0) Ur Specific [place] (1.001-1.035) Urine Protein (Negative) Urine Glucose (UA) (Negative) Urine Ketones (Negative) Urine Blood (Negative) Urine Nitrite (Negative) Urine Bilirubin (Negative) Urine Urobilinogen (<2.0) mg/dL Ur Leukocyte Esterase (Negative) Urine RBC (0-5) /hpf Urine WBC (0-5) /hpf Urine WBC Clumps (None) /hpf Urine Bacteria (None) /hpf Hyaline Casts (0-2) /lpf Urine Mucus (None) /hpf 09/13/24 09/13/24 09/13/24 Range/Units 22:26 22:26 22:51 WBC (4.50-10.00) 10*3/uL RBC (4.10-5.20) 10*6/uL Hgb (12.0-15.0) g/dL Hct (37.2-46.3) % MCV (80.0-97.0) fL MCH (27.0-32.0) pg MCHC (32.0-37.0) g/dL Plt Count (140-440) 10*3/uL MPV (9.5-12.2) fL Immature Gran % (Auto) % Neutrophils % % Lymphocytes % % Monocytes % % Eosinophils % % Basophils % % Immature Gran # (0.00-0.04) 10*3/uL Neutrophils # (1.80-7.70) 10*3/uL Lymphocytes # (0.90-5.00) 10*3/uL Monocytes # (0.20-1.00) 10*3/uL Eosinophils # (0.04-0.35) 10*3/uL Basophils # (0.00-0.10) 10*3/uL PT 10.4 (10.0-12.5) sec INR 0.9 (<1.2) APTT 19.4 L (22.0-30.0) sec D-Dimer 0.99 H (<0.60) mg/L FEU Sodium (137-145) mmol/L Potassium (3.5-5.1) mmol/L Chloride (98-107) mmol/L Carbon Dioxide (22-30) mmol/L Anion Gap mmol/L BUN (7-17) mg/dL Creatinine (0.52-1.04) mg/dL Est GFR (CKD-EPI)AfAm (>60 ml/min/1.73 sqM) Est GFR (CKD-EPI)NonAf (>60 ml/min/1.73 sqM) Glucose (74-99) mg/dL Lactic Ac Sepsis Rflx Y Plasma Lactic Acid Oliver 4.6 H* (0.7-2.0) mmol/L Calcium (8.4-10.2) mg/dL Total Bilirubin (0.2-1.3) mg/dL AST (14-36) U/L ALT (4-34) U/L Alkaline Phosphatase (38-126) U/L Troponin I (0.000-0.034) ng/mL NT-Pro-B Natriuret Pep pg/mL Total Protein (6.3-8.2) g/dL Albumin (3.5-5.0) g/dL Urine Color Urine Appearance (Clear) Urine pH (5.0-8.0) Ur Specific [place] (1.001-1.035) Urine Protein (Negative) Urine Glucose (UA) (Negative) Urine Ketones (Negative) Urine Blood (Negative) Urine Nitrite (Negative) Urine Bilirubin (Negative) Urine Urobilinogen (<2.0) mg/dL Ur Leukocyte Esterase (Negative) Urine RBC (0-5) /hpf Urine WBC (0-5) /hpf Urine WBC Clumps (None) /hpf Urine Bacteria (None) /hpf Hyaline Casts (0-2) /lpf Urine Mucus (None) /hpf 09/14/24 09/14/24 Range/Units 01:27 02:00 WBC (4.50-10.00) 10*3/uL RBC (4.10-5.20) 10*6/uL Hgb (12.0-15.0) g/dL Hct (37.2-46.3) % MCV (80.0-97.0) fL MCH (27.0-32.0) pg MCHC (32.0-37.0) g/dL Plt Count (140-440) 10*3/uL MPV (9.5-12.2) fL Immature Gran % (Auto) % Neutrophils % % Lymphocytes % % Monocytes % % Eosinophils % % Basophils % % Immature Gran # (0.00-0.04) 10*3/uL Neutrophils # (1.80-7.70) 10*3/uL Lymphocytes # (0.90-5.00) 10*3/uL Monocytes # (0.20-1.00) 10*3/uL Eosinophils # (0.04-0.35) 10*3/uL Basophils # (0.00-0.10) 10*3/uL PT (10.0-12.5) sec INR (<1.2) APTT (22.0-30.0) sec D-Dimer (<0.60) mg/L FEU Sodium (137-145) mmol/L Potassium (3.5-5.1) mmol/L Chloride (98-107) mmol/L Carbon Dioxide (22-30) mmol/L Anion Gap mmol/L BUN (7-17) mg/dL Creatinine (0.52-1.04) mg/dL Est GFR (CKD-EPI)AfAm (>60 ml/min/1.73 sqM) Est GFR (CKD-EPI)NonAf (>60 ml/min/1.73 sqM) Glucose (74-99) mg/dL Lactic Ac Sepsis Rflx Plasma Lactic Acid Oliver 5.7 H* (0.7-2.0) mmol/L Calcium (8.4-10.2) mg/dL Total Bilirubin (0.2-1.3) mg/dL AST (14-36) U/L ALT (4-34) U/L Alkaline Phosphatase (38-126) U/L Troponin I (0.000-0.034) ng/mL NT-Pro-B Natriuret Pep pg/mL Total Protein (6.3-8.2) g/dL Albumin (3.5-5.0) g/dL Urine Color Yellow Urine Appearance Cloudy H (Clear) Urine pH 6.5 (5.0-8.0) Ur Specific [place] 1.031 (1.001-1.035) Urine Protein 1+ H (Negative) Urine Glucose (UA) Negative (Negative) Urine Ketones Negative (Negative) Urine Blood Negative (Negative) Urine Nitrite Negative (Negative) Urine Bilirubin Negative (Negative) Urine Urobilinogen 2.0 (<2.0) mg/dL Ur Leukocyte Esterase Large H (Negative) Urine RBC 4 (0-5) /hpf Urine WBC >182 H (0-5) /hpf Urine WBC Clumps Moderate H (None) /hpf Urine Bacteria Rare H (None) /hpf Hyaline Casts 3 H (0-2) /lpf Urine Mucus Rare H (None) /hpf Disposition Clinical Impression: Sepsis, UTI (urinary tract infection), Altered mental status, Lactic acidosis Disposition: ADMITTED IP TO THIS HOSP Condition: Good Is patient prescribed a controlled substance at d/c from ED?: No
[2024-09-13] MEDS: ONDANSETRON 4 MG/2 ML VIAL IVP STA (22:14)
[2024-09-13 22:35] LABS: Basophils # (A) 0.01 10*3/uL (0.00-0.10); Basophils % (A) 0.2 %; Eosinophils # (A) 0.01 10*3/uL (0.04-0.35); Eosinophils % (A) 0.2 %; HCT 32.4 % (37.2-46.3); Lymphocytes # (A) 0.58 10*3/uL (0.90-5.00); Lymphocytes % (A) 11.6 %; MCH 33.4 pg (27.0-32.0); MCV 98.5 fL (80.0-97.0); Monocytes # (A) 0.02 10*3/uL (0.20-1.00); Monocytes % (A) 0.4 %; Neutrophils # (A) 4.32 10*3/uL (1.80-7.70); Neutrophils % (A) 86.8 %; Platelet Count 193 10*3/uL (140-440); RBC 3.29 10*6/uL (4.10-5.20); RDW 14.4 % (11.5-14.5); WBC 4.98 10*3/uL (4.50-10.00)
[2024-09-13 22:46] LABS: ALT 22 U/L (4-34); AST 30 U/L (14-36); African American GFR (CKD) 46 (>60 ml/min/1.73 sqM); Albumin 3.8 g/dL (3.5-5.0); Alkaline Phosphatase 52 U/L (38-126); Anion Gap 12 mmol/L; Blood Urea Nitrogen 24 mg/dL (7-17); Carbon Dioxide 18 mmol/L (22-30); Chloride 100 mmol/L (98-107); Glucose 86 mg/dL (74-99); Non-African American GFR(CKD) 40 (>60 ml/min/1.73 sqM); Sodium 130 mmol/L (137-145); Total Bilirubin 1.3 mg/dL (0.2-1.3); Total Protein 6.4 g/dL (6.3-8.2)
[2024-09-13 22:49] LABS: Potassium 4.3 mmol/L (3.5-5.1)
[2024-09-13 22:55] LABS: NT-Pro-B-Type Natriuretic Pept 194 pg/mL
[2024-09-13 23:15] LABS: INR 0.9 (<1.2); Prothrombin Time 10.4 sec (10.0-12.5)
[2024-09-13 23:27] LABS: Partial Thromboplastin Time 19.4 sec (22.0-30.0)
--- NOTE | 2024-09-13 23:45 | CT ---
EXAM: CT Head Without Intravenous Contrast CLINICAL HISTORY: ITS.REASON CT Reason: headache TECHNIQUE: Axial computed tomography images of the head/brain without intravenous contrast. CTDI is 49.2 mGy and DLP is 1258.4 mGy-cm. This CT exam was performed using one or more of the following dose reduction techniques: automated exposure control, adjustment of the mA and/or kV according to patient size, and/or use of iterative reconstruction technique. COMPARISON: No relevant prior studies available. FINDINGS: No acute intracranial hemorrhage. No midline shift or mass effect. The territorial carlin-white matter differentiation is maintained throughout. Age-related cerebral volume loss. Periventricular and subcortical white matter hypoattenuation, consistent with chronic microangiopathy. The visualized orbits appear grossly unremarkable. The calvarium is intact. The visualized paranasal sinuses and mastoid air cells are grossly clear. IMPRESSION: No acute intracranial hemorrhage, midline shift, or mass effect.
--- NOTE | 2024-09-14 00:12 | XR ---
EXAM: XR Chest, 2 Views CLINICAL HISTORY: ITS.REASON XR Reason: Weakness TECHNIQUE: Frontal and lateral views of the chest. COMPARISON: No relevant prior studies available. FINDINGS: Lungs: Unremarkable. No consolidation. Pleural space: Unremarkable. No pneumothorax. Heart: Unremarkable. No cardiomegaly. Mediastinum: Unremarkable. Bones/joints: Unremarkable. IMPRESSION: No consolidation.
[2024-09-14] MEDS: SODIUM CHLORIDE 0.9% 500 ML 500 ML IV STA ×2 (00:22→02:52)
[2024-09-14] MEDS: PROMETHAZINE 25 MG TAB PO STA (00:59)
--- NOTE | 2024-09-14 01:01 | CT ---
EXAM: CT Angiography Chest With Intravenous Contrast CLINICAL HISTORY: ITS.REASON CT Reason: dyspnea, possible PE TECHNIQUE: Axial computed tomographic angiography images of the chest with intravenous contrast. CTDI is 38.1 mGy and DLP is 701 mGy-cm. This CT exam was performed using one or more of the following dose reduction techniques: automated exposure control, adjustment of the mA and/or kV according to patient size, and/or use of iterative reconstruction technique. MIP reconstructed images were created and reviewed. COMPARISON: No relevant prior studies available. FINDINGS: Limitations: Evaluation is limited due to suboptimal contrast bolus timing. Consider repeat exam, if clinically indicated. Pulmonary arteries: Unremarkable. No pulmonary embolism. Aorta: Atherosclerotic changes of the aorta. No thoracic aortic aneurysm. Lungs: Unremarkable. No mass. No consolidation. Pleural space: Unremarkable. No significant effusion. No pneumothorax. Heart: Unremarkable. No cardiomegaly. No significant pericardial effusion. No evidence of RV dysfunction. Bones/joints: Degenerative changes of the spine. No acute fracture. No dislocation. Soft tissues: Unremarkable. Lymph nodes: Unremarkable. No enlarged lymph nodes. IMPRESSION: Evaluation is limited due to suboptimal contrast bolus timing. Consider repeat exam, if clinically indicated.
[2024-09-14] MEDS: ONDANSETRON 4 MG/2 ML VIAL IVP STA (01:25)
[2024-09-14 02:09] LABS: Appearance,Urine Cloudy (Clear); Bacteria,Urine Rare /hpf; Bilirubin,Urine Negative (Negative); Blood,Urine Negative (Negative); Color,Urine Yellow; Glucose,Urine (UA) Negative (Negative); Hyaline Casts,Urine 3 /lpf (0-2); Ketones,Urine Negative (Negative); Leukocyte Esterase,Urine Large (Negative); Mucus,Urine Rare /hpf; Nitrite,Urine Negative (Negative); PH, Urine 6.5 (5.0-8.0); Protein,Urine 1+ (Negative); RBC,Urine 4 /hpf (0-5); Specific Gravity,Urine 1.031 (1.001-1.035); WBC,Urine >182 /hpf (0-5)
[2024-09-14] MEDS: MORPHINE SULFATE 4 MG/ML SYRINGE IV STA (02:45)
[2024-09-14] MEDS: PROCHLORPERAZINE INJ 10 MG/2 ML VIAL IVP STA (02:52)
[2024-09-14] MEDS: LACTATED RINGERS 1,000 ML IV SCH (02:58)
[2024-09-14] MEDS: EZETIMIBE 10 MG TAB PO SCH (11:21)
[2024-09-14] MEDS: MORPHINE SULFATE 2 MG/ML SYRINGE IVP PRN (11:21)
[2024-09-14] MEDS: LIDOCAINE 4% PATCH TOPICAL SCH (11:50)
[2024-09-14] MEDS: DULoxetine HCL 30 MG CAPSULE.DR PO SCH (11:51)
--- NOTE | 2024-09-14 13:54 | P.HPIM ---
History of Present Illness H&P Date: 09/14/24 History of present illness; patient is a 84-year-old lady with past medical history significant for hypertension, breast cancer, hyperlipidemia brought to the ER because of not feeling well for the last few days. Patient was recently seen at [facility] for similar complaints. Patient stated that he has been having difficulty in breathing. Patient also complaining of headaches. Patient denies any fever or chills at home. Patient was complaining of back pain. Patient was complaining of increased frequency of urination and urgency. Denies any hematuria. There was no complaint of chest pain. Patient denies palpitations. There is no complaint of orthopnea or PND. There is no complaint of swelling of feet. Initial lab work done in the ER showed WBC 4.98, hemoglobin 11, platelet count 193, D-dimer 0.99, sodium 130, potassium 4.3, BUN 24, creatinine 1.25, lactate 4.6 calcium 9, bilirubin 1.3, AST 30, ALT 22, troponin 0.012 UA showing large amount of leukocyte Estrace, urine WBC more than 182, EKG done in the ER showed heart rate of 108, no ST segment elevation or depre ssion seen, no T-wave inversions seen. Chest x-ray done in the ER showed no evidence of any pneumonia or fluid overload CT head done showed no acute intracranial process, No acute intracranial hemorrhage, midline shift or mass effect CT PE protocol was suboptimal study, no evidence of any PE at this time. Patient admitted to internal medicine service REVIEW OF SYSTEMS: CONSTITUTIONAL: No fever, no malaise, no fatigue. HEENT: No recent visual problems or hearing problems. Denied any sore throat. CARDIOVASCULAR: No chest pain, orthopnea, PND, no palpitations, no syncope. PULMONARY: No shortness of breath, no cough, no hemoptysis. GASTROINTESTINAL: No diarrhea, no nausea, no vomiting, no abdominal pain. NEUROLOGICAL: No headaches, no weakness, no numbness. HEMATOLOGICAL: Denies any bleeding or petechiae. Genitourinary; as mentioned above MUSCULOSKELETAL/RHEUMATOLOGICAL: Denies any joint pain, swelling, or any muscle pain. ENDOCRINE: Denies any polyuria or polydipsia. The rest of the 14-point review of systems is negative. PHYSICAL EXAMINATION: GENERAL: The patient is alert and oriented x3, not in any acute distress. Well developed, well nourished. HEENT: Pupils are round and equally reacting to light. EOMI. No scleral icterus. No conjunctival pallor. Normocephalic, atraumatic. No pharyngeal erythema. No thyromegaly. CARDIOVASCULAR: S1 and S2 present. No murmurs, rubs, or gallops. PULMONARY: Chest is clear to auscultation, no wheezing or crackles. ABDOMEN: Soft, nontender, nondistended, normoactive bowel sounds. No palpable organomegaly. MUSCULOSKELETAL: No joint swelling or deformity. EXTREMITIES: No cyanosis, clubbing, or pedal edema. NEUROLOGICAL: Gross neurological examination did not reveal any focal deficits. SKIN: No rashes. Assessment and plan UTI Lactic acidosis Hyponatremia RUSS Hyperlipidemia hypertension Monitor vital signs Monitor CBC Monitor CMP Continue telemetry monitoring Ordered blood cultures Order urine cultures Ordered IV fluids Ordered IV Rocephin CRP, ESR, Pro-Dean Order ultrasound of lower extremities bilaterally Order ultrasound kidneys Consult ID Labs and medication were reviewed.. Continue same treatment. Continue with symptomatic treatment. Resume home medication. Monitor labs and vitals. DVT and GI prophylaxis. Further recommendations as per clinical course of the patient Dictation was produced using [email or web address] dictation software. please excuse any grammatical, word or spelling errors. Past Medical History Past Medical History: Hyperlipidemia, Hypertension History of Any Multi-Drug Resistant Organisms: None Reported Past Surgical History: Appendectomy Additional Past Surgical History / Comment(s): lumpectomy left breast for cancer finished with radiation treatments 2017. Past Anesthesia/Blood Transfusion Reactions: No Reported Reaction Past Psychological History: No Psychological Hx Reported Past Alcohol Use History: None Reported Past Drug Use History: None Reported - Past Family History Father Family Medical History: Cancer Additional Family Medical History / Comment(s): lung ca Mother Additional Family Medical History / Comment(s): parkinson Sister(s) Family Medical History: Cancer Additional Family Medical History / Comment(s): 9 siblings, 3 have . 2 sisters had breast CA, one sister had spinal CA. one sister had lung CA. one Brother dies of parkinsons, one brother has kidney problems and heart failure aicd/pacer. Medications and Allergies Home Medications Medication Instructions Recorded Confirmed Type Montelukast [Singulair] 10 mg PO HS 06/16/19 09/14/24 History Omeprazole 20 mg PO AC-BID 06/16/19 09/14/24 History Vit C/E/Zn/Coppr/Lutein/Zeaxan 1 cap PO BID 06/16/19 09/14/24 History [Preservision Areds 2 Softgel] Abemaciclib [Verzenio] 100 mg PO BID 09/14/24 09/14/24 History Calcium 2,000mg 2,000 mg PO HS 09/14/24 09/14/24 History Cholecalciferol (Vitamin D3) 50 mcg PO DAILY 09/14/24 09/14/24 History [Vitamin D3 (50 Mcg = 2000 Iu)] DULoxetine HCL [Cymbalta] 30 mg PO BID 09/14/24 09/14/24 History Ezetimibe [Zetia] 10 mg PO DAILY 09/14/24 09/14/24 History Fluocinonide 0.05% Solution 1 applic TOPICAL HS 09/14/24 09/14/24 History Fulvestrant 1 dose IM Q35D 09/14/24 09/14/24 History Hydroxyurea [Hydrea] 500 mg PO DAILY 09/14/24 09/14/24 History Losartan Potassium 100 mg PO DAILY 09/14/24 09/14/24 History Melatonin 10 mg PO HS 09/14/24 09/14/24 History Ondansetron Odt [Zofran Odt] 8 mg PO DAILY 09/14/24 09/14/24 History Allergies Allergy/AdvReac Type Severity Reaction Status Date / Time codeine Allergy Unknown Verified 09/14/24 09:08 Physical Exam Vitals: Vital Signs Temp Pulse Resp BP Pulse Ox 09/14/24 09:30 95 20 116/56 96 09/14/24 08:07 93 20 116/53 96 09/14/24 06:00 98.3 F 104 H 13 115/51 94 L 09/14/24 05:00 98.7 F 94 20 93/42 99 09/14/24 03:30 99 22 121/57 96 09/14/24 02:00 99.9 F H 93 20 124/77 98 09/14/24 01:15 99 20 123/53 98 09/14/24 00:45 100.5 F H 73 16 98/67 99 09/13/24 23:30 68 18 102/66 98 09/13/24 21:16 98.4 F 72 20 108/53 99 Intake and Output 09/13/24 09/14/24 09/14/24 22:59 06:59 14:59 Other: Weight 63.503 kg Results CBC & Chem 7: 09/13/24 22:19 09/13/24 22:19 Labs: Abnormal Lab Results - Last 24 Hours (Table) 09/13/24 09/13/24 09/13/24 Range/Units 22:19 22:19 22:26 RBC 3.29 L (4.10-5.20) 10*6/uL Hgb 11.0 L (12.0-15.0) g/dL Hct 32.4 L (37.2-46.3) % MCV 98.5 H (80.0-97.0) fL MCH 33.4 H (27.0-32.0) pg Lymphocytes # 0.58 L (0.90-5.00) 10*3/uL Monocytes # 0.02 L (0.20-1.00) 10*3/uL Eosinophils # 0.01 L (0.04-0.35) 10*3/uL APTT 19.4 L (22.0-30.0) sec D-Dimer 0.99 H (<0.60) mg/L FEU Sodium 130 L (137-145) mmol/L Carbon Dioxide 18 L (22-30) mmol/L BUN 24 H (7-17) mg/dL Creatinine 1.25 H (0.52-1.04) mg/dL Plasma Lactic Acid Oliver (0.7-2.0) mmol/L Urine Appearance (Clear) Urine Protein (Negative) Ur Leukocyte Esterase (Negative) Urine WBC (0-5) /hpf Urine WBC Clumps (None) /hpf Urine Bacteria (None) /hpf Hyaline Casts (0-2) /lpf Urine Mucus (None) /hpf 09/13/24 09/14/24 09/14/24 Range/Units 22:26 01:27 02:00 RBC (4.10-5.20) 10*6/uL Hgb (12.0-15.0) g/dL Hct (37.2-46.3) % MCV (80.0-97.0) fL MCH (27.0-32.0) pg Lymphocytes # (0.90-5.00) 10*3/uL Monocytes # (0.20-1.00) 10*3/uL Eosinophils # (0.04-0.35) 10*3/uL APTT (22.0-30.0) sec D-Dimer (<0.60) mg/L FEU Sodium (137-145) mmol/L Carbon Dioxide (22-30) mmol/L BUN (7-17) mg/dL Creatinine (0.52-1.04) mg/dL Plasma Lactic Acid Oliver 4.6 H* 5.7 H* (0.7-2.0) mmol/L Urine Appearance Cloudy H (Clear) Urine Protein 1+ H (Negative) Ur Leukocyte Esterase Large H (Negative) Urine WBC >182 H (0-5) /hpf Urine WBC Clumps Moderate H (None) /hpf Urine Bacteria Rare H (None) /hpf Hyaline Casts 3 H (0-2) /lpf Urine Mucus Rare H (None) /hpf
--- NOTE | 2024-09-14 14:06 | US ---
EXAMINATION TYPE: US kidneys/renal and bladder DATE OF EXAM: 09/14/2024 COMPARISON: NONE CLINICAL INDICATION: Female, 84 years old with history of Ben; BEN TECHNIQUE: Grayscale imaging of the bilateral kidneys and urinary bladder: FINDINGS: EXAM MEASUREMENTS: Right Kidney: 11.7 x 6.1 x 5.1 cm Left Kidney: 12.5 x 5.5 x 6.7 cm Right Kidney: cystic area seen inferior renal sinus measuring 3.4 x 2.0 x 2.7cm. Parapelvic cysts, ex trarenal pelvis, mild hydronephrosis could be considered. Left Kidney: cystic area inf pole measuring 2.2 x 1.8 x 2.0cm compatible with cortical renal cyst Bladder: wnl Bilateral Jets seen: Yes IMPRESSION: 1. Cystlike area within the inferior renal pelvic region. Differential diagnosis discussed above. 2. Left cortical renal cyst [facility], , 09/14/2024 2:04 PM
--- NOTE | 2024-09-14 14:07 | US ---
EXAMINATION TYPE: US venous doppler duplex LE BI DATE OF EXAM: 09/14/2024 1:41 PM COMPARISON: NONE CLINICAL INDICATION: Female, 84 years old with history of swelling, elevated d-dimer; elevated d dime r. No leg complaints, Pain TECHNIQUE: The lower extremity deep venous system is examined utilizing real time linear array sonog trena with graded compression, color doppler sonography, and spectral doppler. SIDE PERFORMED: Bilateral FINDINGS: VESSELS IMAGED: Common Femoral Vein Deep Femoral Vein Greater Saphenous Vein * Femoral Vein Popliteal Vein Small Saphenous Vein * Proximal Calf Veins (* superficial vessels) Right Leg: No evidence for DVT, Color Doppler imaging shows patency of the vessels. Spectral wavefor ms are within normal limits. Left Leg: No evidence for DVT, Color Doppler imaging shows patency of the vessels. Spectral waveform s are within normal limits. IMPRESSION: 1. Bilateral lower extremity ultrasound negative for deep venous thrombosis. [facility], , 09/14/2024 2:05 PM
[2024-09-14 16:35] LABS: ALT 20 U/L (4-34); AST 29 U/L (14-36); African American GFR (CKD) 74 (>60 ml/min/1.73 sqM); Albumin 2.9 g/dL (3.5-5.0); Albumin/Globulin Ratio 1.4; Alkaline Phosphatase 49 U/L (38-126); Anion Gap 9 mmol/L; Blood Urea Nitrogen 16 mg/dL (7-17); Carbon Dioxide 19 mmol/L (22-30); Chloride 105 mmol/L (98-107); Globulin 2.1 g/dL; Glucose 87 mg/dL (74-99); Non-African American GFR(CKD) 64 (>60 ml/min/1.73 sqM); Potassium 4.3 mmol/L (3.5-5.1); Sodium 133 mmol/L (137-145); Total Bilirubin 0.8 mg/dL (0.2-1.3)
[2024-09-14] MEDS: BETAMETHASONE DIPROPIONATE 0.05% CREAM 15 GM TUBE TOPICAL SCH (21:39)
[2024-09-14] MEDS: MONTELUKAST 10 MG TAB PO SCH (21:39)
[2024-09-14] MEDS: MELATONIN 5 MG TABLET PO SCH (21:39)
--- NOTE | 2024-09-14 22:28 | P.CONS ---
History of Present Illness - Reason for Consult Consult date: 09/14/24 Complicated UTI Requesting physician: Navjot Toledo - Chief Complaint Weakness not feeling well x few days - History of Present Illness Patient is a 84-year-old female with a past medical history significant for hyperlipidemia hypertension former smoker presenting to the hospital for evaluation of not feeling well and weakness, patient symptoms has been getting worse for the last few days patient denies having any headache or URI symptoms no chest pain some shortness of breath occasional cough patient denies any abdominal pain did have an episode of diarrhea and also urinary frequency but no burning or hematuria with the symptoms the patient was evaluated on presentation to the hospital patient did have a fever 100.5 F patient was tachycardic but not hypotensive or hypoxic patient did have a 24.98 BUN/creatinine was mildly elevated lactic acid was elevated liver enzymes are normal urine has been positive patient did have a chest x-ray and a CT angiogram of the chest that was negative for PE and did not mention any consolidation abdominal bladder ultrasound did mention mild hydronephrosis on the right side and a question of a cyst patient has been admitted to the hospital started on ceftriaxone infectious disease was consulted for further management of antibiotic therapy Review of Systems Positive point and negatives has been mentioned in the HPI, complete review of systems was performed and all other systems are negative Past Medical History Past Medical History: Hyperlipidemia, Hypertension History of Any Multi-Drug Resistant Organisms: None Reported Past Surgical History: Appendectomy Additional Past Surgical History / Comment(s): lumpectomy left breast for cancer finished with radiation treatments 2017. Past Anesthesia/Blood Transfusion Reactions: No Reported Reaction Past Psychological History: No Psychological Hx Reported Smoking Status: Former smoker Past Alcohol Use History: None Reported Past Drug Use History: None Reported - Past Family History Father Family Medical History: Cancer Additional Family Medical History / Comment(s): lung ca Mother Additional Family Medical History / Comment(s): parkinson Sister(s) Family Medical History: Cancer Additional Family Medical History / Comment(s): 9 siblings, 3 have . 2 sisters had breast CA, one sister had spinal CA. one sister had lung CA. one Brother dies of parkinsons, one brother has kidney problems and heart failure ai cd/pacer. Medications and Allergies Home Medications Medication Instructions Recorded Confirmed Type Montelukast [Singulair] 10 mg PO HS 06/16/19 09/14/24 History Omeprazole 20 mg PO AC-BID 06/16/19 09/14/24 History Vit C/E/Zn/Coppr/Lutein/Zeaxan 1 cap PO BID 06/16/19 09/14/24 History [Preservision Areds 2 Softgel] Abemaciclib [Verzenio] 100 mg PO BID 09/14/24 09/14/24 History Calcium 2,000mg 2,000 mg PO HS 09/14/24 09/14/24 History Cholecalciferol (Vitamin D3) 50 mcg PO DAILY 09/14/24 09/14/24 History [Vitamin D3 (50 Mcg = 2000 Iu)] DULoxetine HCL [Cymbalta] 30 mg PO BID 09/14/24 09/14/24 History Ezetimibe [Zetia] 10 mg PO DAILY 09/14/24 09/14/24 History Fluocinonide 0.05% Solution 1 applic TOPICAL HS 09/14/24 09/14/24 History Fulvestrant 1 dose IM Q35D 09/14/24 09/14/24 History Hydroxyurea [Hydrea] 500 mg PO DAILY 09/14/24 09/14/24 History Losartan Potassium 100 mg PO DAILY 09/14/24 09/14/24 History Melatonin 10 mg PO HS 09/14/24 09/14/24 History Ondansetron Odt [Zofran Odt] 8 mg PO DAILY 09/14/24 09/14/24 History Allergies Allergy/AdvReac Type Severity Reaction Status Date / Time codeine Allergy Unknown Verified 09/14/24 09:08 Physical Exam Vitals: Vital Signs Temp Pulse Pulse Resp BP BP Pulse Ox 09/14/24 10:45 98.9 F 90 18 134/49 98 09/14/24 10:28 98.4 F 97 20 129/65 96 09/14/24 09:30 95 20 116/56 96 09/14/24 08:07 93 20 116/53 96 09/14/24 06:00 98.3 F 104 H 13 115/51 94 L 09/14/24 05:00 98.7 F 94 20 93/42 99 09/14/24 03:30 99 22 121/57 96 09/14/24 02:00 99.9 F H 93 20 124/77 98 09/14/24 01:15 99 20 123/53 98 09/14/24 00:45 100.5 F H 73 16 98/67 99 09/13/24 23:30 68 18 102/66 98 09/13/24 21:16 98.4 F 72 20 108/53 99 Intake and Output 09/13/24 09/14/24 09/14/24 22:59 06:59 14:59 Other: Weight 63.503 kg 63.503 kg GENERAL DESCRIPTION: Elderly female lying in bed, no distress. No tachypnea or accessory muscle of respiration use. HEENT: Shows Pallor , no scleral icterus. Oral mucous membrane is dry. NECK: Trachea central, no thyromegaly. LUNGS: Unlabored breathing. Clear to auscultation anteriorly. No wheeze or crackle. HEART: S1, S2, regular rate and rhythm. No loud murmur ABDOMEN: Soft, no tenderness , guarding or rigidity, no organomegaly EXTREMITIES: No edema of feet. SKIN: No rash, no masses palpable. NEUROLOGICAL: The patient is awake, alert, oriented x3, mood and affect normal. Results CBC & Chem 7: 09/15/24 02:52 09/15/24 02:52 Labs: Abnormal Lab Results - Last 24 Hours (Table) 09/13/24 09/13/24 09/13/24 Range/Units 22:19 22:19 22:26 RBC 3.29 L (4.10-5.20) 10*6/uL Hgb 11.0 L (12.0-15.0) g/dL Hct 32.4 L (37.2-46.3) % MCV 98.5 H (80.0-97.0) fL MCH 33.4 H (27.0-32.0) pg Lymphocytes # 0.58 L (0.90-5.00) 10*3/uL Monocytes # 0.02 L (0.20-1.00) 10*3/uL Eosinophils # 0.01 L (0.04-0.35) 10*3/uL APTT 19.4 L (22.0-30.0) sec D-Dimer 0.99 H (<0.60) mg/L FEU Sodium 130 L (137-145) mmol/L Carbon Dioxide 18 L (22-30) mmol/L BUN 24 H (7-17) mg/dL Creatinine 1.25 H (0.52-1.04) mg/dL Plasma Lactic Acid Oliver (0.7-2.0) mmol/L C-Reactive Protein (<1.0) mg/dL Urine Appearance (Clear) Urine Protein (Negative) Ur Leukocyte Esterase (Negative) Urine WBC (0-5) /hpf Urine WBC Clumps (None) /hpf Urine Bacteria (None) /hpf Hyaline Casts (0-2) /lpf Urine Mucus (None) /hpf 09/13/24 09/14/24 09/14/24 Range/Units 22:26 01:27 02:00 RBC (4.10-5.20) 10*6/uL Hgb (12.0-15.0) g/dL Hct (37.2-46.3) % MCV (80.0-97.0) fL MCH (27.0-32.0) pg Lymphocytes # (0.90-5.00) 10*3/uL Monocytes # (0.20-1.00) 10*3/uL Eosinophils # (0.04-0.35) 10*3/uL APTT (22.0-30.0) sec D-Dimer (<0.60) mg/L FEU Sodium (137-145) mmol/L Carbon Dioxide (22-30) mmol/L BUN (7-17) mg/dL Creatinine (0.52-1.04) mg/dL Plasma Lactic Acid Oliver 4.6 H* 5.7 H* (0.7-2.0) mmol/L C-Reactive Protein (<1.0) mg/dL Urine Appearance Cloudy H (Clear) Urine Protein 1+ H (Negative) Ur Leukocyte Esterase Large H (Negative) Urine WBC >182 H (0-5) /hpf Urine WBC Clumps Moderate H (None) /hpf Urine Bacteria Rare H (None) /hpf Hyaline Casts 3 H (0-2) /lpf Urine Mucus Rare H (None) /hpf 09/14/24 Range/Units 10:48 RBC (4.10-5.20) 10*6/uL Hgb (12.0-15.0) g/dL Hct (37.2-46.3) % MCV (80.0-97.0) fL MCH (27.0-32.0) pg Lymphocytes # (0.90-5.00) 10*3/uL Monocytes # (0.20-1.00) 10*3/uL Eosinophils # (0.04-0.35) 10*3/uL APTT (22.0-30.0) sec D-Dimer (<0.60) mg/L FEU Sodium (137-145) mmol/L Carbon Dioxide (22-30) mmol/L BUN (7-17) mg/dL Creatinine (0.52-1.04) mg/dL Plasma Lactic Acid Oliver (0.7-2.0) mmol/L C-Reactive Protein 5.8 H (<1.0) mg/dL Urine Appearance (Clear) Urine Protein (Negative) Ur Leukocyte Esterase (Negative) Urine WBC (0-5) /hpf Urine WBC Clumps (None) /hpf Urine Bacteria (None) /hpf Hyaline Casts (0-2) /lpf Urine Mucus (None) /hpf Assessment and Plan (1) Sepsis Current Visit: Yes Status: Acute Code(s): A41.9 - SEPSIS, UNSPECIFIED ORGANISM SNOMED Code(s): 82095717 (2) UTI (urinary tract infection) Current Visit: Yes Status: Acute Code(s): N39.0 - URINARY TRACT INFECTION, SITE NOT SPECIFIED SNOMED Code(s): 10304118 Plan: 1patient [facility] with sepsis in this patient noted to have fever tachycardia elevated lactic acid meeting criteria for SIRS/sepsis source likely urinary patient did have positive UA and urinary frequency with risk factor of diarrhea concerning for symptomatic UTI likely from enteric gram-negative pathogen 2-will increase the dose of Rocephin to 2 g daily while waiting for the culture to finalize We will follow on clinical condition and cultures to further adjust medication if needed Thank you for this consultation we will follow the patient along with you Dictation was produced using [employer] dictation software. please excuse any grammatical, word or spelling errors. Time with Patient: Greater than 30
[2024-09-15] MEDS: PANTOPRAZOLE 40 MG TABLET PO SCH (06:34)
--- NOTE | 2024-09-15 07:26 | CT ---
EXAMINATION TYPE: CT abdomen pelvis w con DATE OF EXAM: 09/15/2024 4:58 AM COMPARISON: PET/CT 02/22/2024 CLINICAL INDICATION: Female, 84 years old with history of Abdominal pain, TECHNIQUE: Axial images were obtained from above the diaphragm to the pubic rami in the axial plane a t 5 mm thick sections. Reconstructed images are reviewed on the computer in the coronal plane. CONTRAST: mL of . Study performed DLP: 709.8 mGycm, Automated exposure control for dose reduction was used. FINDINGS: Limited CT sections are obtained the lung bases. The lung bases are clear. Small bilateral pleural effusions are present. Some mild adjacent atelectasis is present. CT ABDOMEN: Liver: Normal Spleen: Normal Pancreas: Normal Adrenal glands: Left adrenal gland is thickened at 1.6 cm. This is stable from the localization CT. Gallbladder: Some faint sludge may be present. No gallstones identified. Kidneys: No masses are evident. No hydronephrosis is present. There is a 2.7 cm cyst inferior media l right kidney. There is a 1.9 cm. Delayed images were obtained through the kidneys, which remain un remarkable. Aorta: Vascular calcification is within the aorta. Inferior vena cava: Normal. CT PELVIS: Fluid filled ascending colon is present. Colon appears nondilated. No suspicious wall thickening is e vident. No dilated small bowel loops are evident. Consider gastroenteritis. This study is without ora l contrast Limited evaluation Appendix: Normal as visualized. Urinary bladder: Decompressed limiting evaluation Genitourinary structures: Uterus is visualized appears normal. Small amount of free fluid within the cul-de-sac. Adnexa appear within normal limits Osseous structures: No suspicious lytic or sclerotic lesions. IMPRESSION: 1. Mild fluid within the ascending colon region. Consider gastroenteritis. 2. Small bilateral pleural effusions with minimal adjacent compressive atelectasis. 3. Small amount of free fluid within the cul-de-sac. 4. Bilateral renal cysts. 5. Stable thickened left adrenal gland. [facility], , 09/15/2024 7:24 AM
[2024-09-15] MEDS: CHOLECALCIFEROL 25 MCG (1000 IU) TABLET PO SCH (08:07)
[2024-09-15] MEDS: LOSARTAN 50 MG TAB PO SCH (08:07)
[2024-09-15 09:29] LABS: ALT 19 U/L (8-44); AST 28 U/L (13-35); Albumin 3.1 g/dL (3.8-4.9); Albumin/Globulin Ratio 1.94 Ratio (1.60-3.17); Alkaline Phosphatase 46 U/L (41-126); Calcium 7.8 mg/dL (8.7-10.3); Carbon Dioxide 19.5 mmol/L (21.6-31.8); Chloride 106 mmol/L (96-109); Globulin 1.6 g/dL (1.6-3.3); Glucose 86 mg/dL (70-110); Potassium 4.2 mmol/L (3.5-5.5); Sodium 132 mmol/L (135-145); Total Bilirubin 0.7 mg/dL (0.3-1.2); Total Protein 4.7 g/dL (6.2-8.2)
[2024-09-15 09:40] LABS: Basophils # (A) 0.03 X 10*3/uL (0.00-0.10); Basophils % (A) 0.5 %; Eosinophils # (A) 0.12 X 10*3/uL (0.04-0.35); Eosinophils % (A) 2.2 %; HCT 26.7 % (37.2-46.3); HGB 8.5 g/dL (12.0-15.0); Lymphocytes # (A) 0.71 X 10*3/uL (0.90-5.00); Lymphocytes % (A) 12.8 %; MCHC 31.8 g/dL (32.0-37.0); MCV 100.4 FL (80.0-97.0); Mean Platelet Volume 10.5 FL (9.5-12.2); Monocytes # (A) 0.31 X 10*3/uL (0.20-1.00); Monocytes % (A) 5.6 %; NRBC Per 100 WBC 0.02 X 10*3/uL (0.00-0.01); Neutrophils # (A) 4.37 X 10*3/uL (1.80-7.70); Neutrophils % (A) 78.5 %; Platelet Count 143 X 10*3/uL (140-440); RBC 2.66 X 10*6/uL (4.10-5.20); RDW 15.5 % (11.5-14.5); WBC 5.56 X 10*3/uL (4.50-10.00)
--- NOTE | 2024-09-15 15:20 | P.PN ---
Subjective Progress Note Date: 09/15/24 Principal diagnosis: Reason for follow-up is UTI Patient is a 84-year-old female with a past medical history significant for hyperlipidemia hypertension former smoker presenting to the hospital for evaluation of not feeling well and weakness, patient diagnosed with a symptomatic UTI prompting this consultation. On today's evaluation that is 09/15/2024, Patient is afebrile patient is currently on room air and denies having any shortness of breath, the patient denies any chest pain or cough, the patient denies any nausea vomiting did not have any abdominal pain and no diarrhea Patient was on his 5.56 creatinine 0.8 urine culture currently pending blood cultures pending Objective - Vital Signs Vital signs: Vital Signs Temp 98.5 F 09/15/24 14:00 Pulse 78 09/15/24 14:00 Resp 18 09/15/24 14:00 BP 169/70 09/15/24 14:00 Pulse Ox 96 09/15/24 14:00 FiO2 Intake & Output 09/14/24 09/15/24 09/15/24 18:59 06:59 18:59 Intake Total 24 Balance 24 Weight 63.503 kg Intake: Oral 24 Other: Voiding Method Toilet # Voids 3 4 - Exam GENERAL DESCRIPTION: An elderly female lying in bed in no distress RESPIRATORY SYSTEM: Unlabored breathing , decreased breath sounds at bases HEART: S1 S2 regular rate and rhythm , ABDOMEN: Soft , no tenderness EXTREMITIES: No edema feet - Labs CBC & Chem 7: 09/15/24 02:52 09/15/24 02:52 Labs: Abnormal Lab Results - Last 24 Hours (Table) 09/14/24 09/14/24 09/15/24 Range/Units 10:48 16:08 02:52 RBC 2.66 L (4.10-5.20) X 10*6/uL Hgb 8.5 L (12.0-15.0) g/dL Hct 26.7 L (37.2-46.3) % MCV 100.4 H (80.0-97.0) FL MCHC 31.8 L (32.0-37.0) g/dL RDW 15.5 H (11.5-14.5) % Lymphocytes # 0.71 L (0.90-5.00) X 10*3/uL NRBC/100 WBC Diff 0.02 H (0.00-0.01) X 10*3/uL Sodium 133 L (137-145) mmol/L Carbon Dioxide 19 L (22-30) mmol/L Calcium 8.0 L (8.4-10.2) mg/dL Total Protein 5.0 L (6.3-8.2) g/dL Albumin 2.9 L (3.5-5.0) g/dL Procalcitonin 7.07 H (0.02-0.50) ng/mL 09/15/24 Range/Units 02:52 RBC (4.10-5.20) X 10*6/uL Hgb (12.0-15.0) g/dL Hct (37.2-46.3) % MCV (80.0-97.0) FL MCHC (32.0-37.0) g/dL RDW (11.5-14.5) % Lymphocytes # (0.90-5.00) X 10*3/uL NRBC/100 WBC Diff (0.00-0.01) X 10*3/uL Sodium 132 L (137-145) mmol/L Carbon Dioxide 19.5 L (22-30) mmol/L Calcium 7.8 L (8.4-10.2) mg/dL Total Protein 4.7 L (6.3-8.2) g/dL Albumin 3.1 L (3.5-5.0) g/dL Procalcitonin (0.02-0.50) ng/mL Microbiology - Last 24 Hours (Table) 09/14/24 02:42 Blood Culture - Preliminary Blood 09/14/24 01:27 Urine Culture - Final Urine,Catheterized Assessment and Plan (1) Sepsis Current Visit: Yes Status: Acute Code(s): A41.9 - SEPSIS, UNSPECIFIED ORGANISM SNOMED Code(s): 67034790 (2) UTI (urinary tract infection) Current Visit: Yes Status: Acute Code(s): N39.0 - URINARY TRACT INFECTION, SITE NOT SPECIFIED SNOMED Code(s): 16477634 Plan: 1patient presented hospital with sepsis in this patient noted to have fever tachycardia elevated lactic acid meeting criteria for SIRS/sepsis source likely urinary patient did have positive UA and urinary frequency with risk factor of diarrhea concerning for symptomatic UTI likely from enteric gram-negative pathogen 2-patient will be treated with Rocephin to 2 g daily while waiting for the culture to finalize determine discharge antibiotics Dictation was produced using [employer] dictation software. please excuse any grammatical, word or spelling errors. Time with Patient: Less than 30
--- NOTE | 2024-09-15 16:06 | P.PN ---
Subjective Progress Note Date: 09/15/24 patient is a 84-year-old lady with past medical history significant for hypertension, breast cancer, hyperlipidemia brought to the ER because of not feeling well for the last few days. Patient was recently seen at [facility] for similar complaints. Patient stated that he has been having diff iculty in breathing. Patient also complaining of headaches. Patient denies any fever or chills at home. Patient was complaining of back pain. Patient was complaining of increased frequency of urination and urgency. Denies any hematuria. There was no complaint of chest pain. Patient denies palpitations. There is no complaint of orthopnea or PND. There is no complaint of swelling of feet. Initial lab work done in the ER showed WBC 4.98, hemoglobin 11, platelet count 193, D-dimer 0.99, sodium 130, potassium 4.3, BUN 24, creatinine 1.25, lactate 4.6 calcium 9, bilirubin 1.3, AST 30, ALT 22, troponin 0.012 UA showing large amount of leukocyte Estrace, urine WBC more than 182, EKG done in the ER showed heart rate of 108, no ST segment elevation or depression seen, no T-wave inversions seen. Chest x-ray done in the ER showed no evidence of any pneumonia or fluid overload CT head done showed no acute intracranial process, No acute intracranial hemorrhage, midline shift or mass effect CT PE protocol was suboptimal study, no evidence of any PE at this time. Patient admitted to internal medicine service 09/15. Patient seen examined. States she feels much better. CT abdominal pelvis done showed mild fluid within the ascending colon consider gastroenteritis. REVIEW OF SYSTEMS: CONSTITUTIONAL: No fever, no malaise,. CARDIOVASCULAR: No chest pain, no palpitations, no syncope. PULMONARY: No shortness of breath, no cough, GASTROINTESTINAL: No diarrhea, no nausea, no vomiting, no abdominal pain. NEUROLOGICAL: No headaches, no weakness, PHYSICAL EXAMINATION: GENERAL: The patient is alert and oriented x3, not in any acute distress. Well developed, well nourished. HEENT: Pupils are round and equally reacting to light. EOMI. No scleral icterus. No conjunctival pallor. Normocephalic, atraumatic. No pharyngeal erythema. No thyromegaly. CARDIOVASCULAR: S1 and S2 present. No murmurs, rubs, or gallops. PULMONARY: Chest is clear to auscultation, no wheezing or crackles. ABDOMEN: Soft, nontender, nondistended, normoactive bowel sounds. No palpable organomegaly. MUSCULOSKELETAL: No joint swelling or deformity. EXTREMITIES: No cyanosis, clubbing, or pedal edema. NEUROLOGICAL: Gross neurological examination did not reveal any focal deficits. SKIN: No rashes. Assessment and plan UTI Lactic acidosis Hyponatremia RUSS Hyperlipidemia hypertension Monitor vital signs Monitor CBC Monitor CMP Follow-up on blood culture Follow-up on urine culture DC IV fluids continue IV Rocephin ID following, recommendation noted from 09/15 Labs and medication were reviewed.. Continue same treatment. Continue with symptomatic treatment. Resume home medication. Monitor labs and vitals. DVT and GI prophylaxis. Further recommendations as per clinical course of the patient Dictation was produced using [employer] dictation software. please excuse any grammatical, word or spelling errors. Objective - Vital Signs Vital signs: Vital Signs Temp 98.5 F 09/15/24 14:00 Pulse 78 09/15/24 14:00 Resp 18 09/15/24 14:00 BP 169/70 09/15/24 14:00 Pulse Ox 96 09/15/24 14:00 FiO2 Intake & Output 09/14/24 09/15/24 09/15/24 18:59 06:59 18:59 Intake Total 24 Balance 24 Weight 63.503 kg Intake: Oral 24 Other: Voiding Method Toilet # Voids 3 4 - Labs CBC & Chem 7: 09/15/24 02:52 09/15/24 02:52 Labs: Abnormal Lab Results - Last 24 Hours (Table) 09/14/24 09/14/24 09/15/24 Range/Units 10:48 16:08 02:52 RBC 2.66 L (4.10-5.20) X 10*6/uL Hgb 8.5 L (12.0-15.0) g/dL Hct 26.7 L (37.2-46.3) % MCV 100.4 H (80.0-97.0) FL MCHC 31.8 L (32.0-37.0) g/dL RDW 15.5 H (11.5-14.5) % Lymphocytes # 0.71 L (0.90-5.00) X 10*3/uL NRBC/100 WBC Diff 0.02 H (0.00-0.01) X 10*3/uL Sodium 133 L (137-145) mmol/L Carbon Dioxide 19 L (22-30) mmol/L Calcium 8.0 L (8.4-10.2) mg/dL Total Protein 5.0 L (6.3-8.2) g/dL Albumin 2.9 L (3.5-5.0) g/dL Procalcitonin 7.07 H (0.02-0.50) ng/mL 09/15/24 Range/Units 02:52 RBC (4.10-5.20) X 10*6/uL Hgb (12.0-15.0) g/dL Hct (37.2-46.3) % MCV (80.0-97.0) FL MCHC (32.0-37.0) g/dL RDW (11.5-14.5) % Lymphocytes # (0.90-5.00) X 10*3/uL NRBC/100 WBC Diff (0.00-0.01) X 10*3/uL Sodium 132 L (137-145) mmol/L Carbon Dioxide 19.5 L (22-30) mmol/L Calcium 7.8 L (8.4-10.2) mg/dL Total Protein 4.7 L (6.3-8.2) g/dL Albumin 3.1 L (3.5-5.0) g/dL Procalcitonin (0.02-0.50) ng/mL Microbiology - Last 24 Hours (Table) 09/14/24 02:42 Blood Culture - Preliminary Blood 09/14/24 01:27 Urine Culture - Final Urine,Catheterized
[2024-09-16] MEDS: cefTRIAXone 2 GM in DEXTROSE 5% IN WATER 50 ML IVPB SCH (08:13)
[2024-09-16 10:03] LABS: Basophils # (A) 0.01 10*3/uL (0.00-0.10); Basophils % (A) 0.2 %; Eosinophils # (A) 0.11 10*3/uL (0.04-0.35); Eosinophils % (A) 1.7 %; HCT 29.4 % (37.2-46.3); HGB 10.1 g/dL (12.0-15.0); Lymphocytes # (A) 0.72 10*3/uL (0.90-5.00); Lymphocytes % (A) 11.3 %; MCHC 34.4 g/dL (32.0-37.0); MCV 96.1 fL (80.0-97.0); Mean Platelet Volume 9.3 fL (9.5-12.2); Monocytes # (A) 0.32 10*3/uL (0.20-1.00); Neutrophils # (A) 5.17 10*3/uL (1.80-7.70); Neutrophils % (A) 81.3 %; Platelet Count 117 10*3/uL (140-440); RBC 3.06 10*6/uL (4.10-5.20); RDW 14.2 % (11.5-14.5); WBC 6.36 10*3/uL (4.50-10.00)
[2024-09-16 10:25] LABS: ALT 18 U/L (4-34); AST 23 U/L (14-36); African American GFR (CKD) >90 (>60 ml/min/1.73 sqM); Albumin 3.2 g/dL (3.5-5.0); Albumin/Globulin Ratio 1.3; Alkaline Phosphatase 49 U/L (38-126); Anion Gap 6 mmol/L; Blood Urea Nitrogen 7 mg/dL (7-17); Calcium 8.7 mg/dL (8.4-10.2); Carbon Dioxide 23 mmol/L (22-30); Chloride 98 mmol/L (98-107); Globulin 2.5 g/dL; Glucose 126 mg/dL (74-99); Magnesium 1.6 mg/dL (1.6-2.3); Non-African American GFR(CKD) 80 (>60 ml/min/1.73 sqM); Potassium 3.9 mmol/L (3.5-5.1); Sodium 127 mmol/L (137-145); Total Bilirubin 0.7 mg/dL (0.2-1.3); Total Protein 5.7 g/dL (6.3-8.2)
[2024-09-16] MEDS: SODIUM CHLORIDE 0.9% 1,000 ML IV SCH (14:06)
--- NOTE | 2024-09-16 15:23 | P.PN ---
Subjective Progress Note Date: 09/16/24 Principal diagnosis: Reason for follow-up is UTI Patient is a 84-year-old female with a past medical history significant for hyperlipidemia hypertension former smoker presenting to the hospital for evaluation of not feeling well and weakness, patient diagnosed with a symptomatic UTI prompting this consultation. On today's evaluation that is 09/16/2024, patient has been afebrile, patient is breathing comfortably and is currently on room air, patient denies having any chest pain and cough, patient denies nausea vomiting or diarrhea and no abdominal pain or feeling weak. Patient white count 6.36 blood urine culture results were negative Objective - Vital Signs Vital signs: Vital Signs Temp 98.2 F 09/16/24 14:00 Pulse 74 09/16/24 14:00 Resp 18 09/16/24 14:00 BP 155/68 09/16/24 14:00 Pulse Ox 95 09/16/24 14:00 FiO2 Intake & Output 09/15/24 09/16/24 09/16/24 18:59 06:59 18:59 Intake Total 500 240 Balance 500 240 Intake: Oral 500 240 Other: Voiding Method Toilet Toilet # Voids 2 3 2 - Exam GENERAL DESCRIPTION: An elderly female lying in bed in no distress RESPIRATORY SYSTEM: Unlabored breathing , decreased breath sounds at bases HEART: S1 S2 regular rate and rhythm , ABDOMEN: Soft , no tenderness EXTREMITIES: No edema feet - Labs CBC & Chem 7: 09/16/24 09:53 09/16/24 09:53 Labs: Abnormal Lab Results - Last 24 Hours (Table) 09/16/24 09/16/24 Range/Units 09:53 09:53 RBC 3.06 L (4.10-5.20) 10*6/uL Hgb 10.1 L (12.0-15.0) g/dL Hct 29.4 L (37.2-46.3) % MCH 33.0 H (27.0-32.0) pg Plt Count 117 L (140-440) 10*3/uL MPV 9.3 L (9.5-12.2) fL Lymphocytes # 0.72 L (0.90-5.00) 10*3/uL Sodium 127 L (137-145) mmol/L Glucose 126 H (74-99) mg/dL Total Protein 5.7 L (6.3-8.2) g/dL Albumin 3.2 L (3.5-5.0) g/dL Microbiology - Last 24 Hours (Table) 09/14/24 02:42 Blood Culture - Preliminary Blood Assessment and Plan (1) Sepsis Current Visit: Yes Status: Acute Code(s): A41.9 - SEPSIS, UNSPECIFIED ORGAN ISM SNOMED Code(s): 45083304 (2) UTI (urinary tract infection) Current Visit: Yes Status: Acute Code(s): N39.0 - URINARY TRACT INFECTION, SITE NOT SPECIFIED SNOMED Code(s): 47529105 Plan: 1patient [facility] with sepsis in this patient noted to have fever tachycardia elevated lactic acid meeting criteria for SIRS/sepsis source likely urinary patient did have positive UA and urinary frequency with risk factor of diarrhea concerning for symptomatic UTI likely from enteric gram-negative pathogen 2-patient did have a CT completed yesterday concern for possible gastroenteritis no diarrhea reported by the nursing staff 3for now the patient will be treated with Rocephin to 2 g daily about a clinical course closely Dictation was produced using [employer] dictation software. please excuse any grammatical, word or spelling errors. Time with Patient: Less than 30
[2024-09-16] MEDS ORDERED: ACETAMINOPHEN TAB 325 MG TAB PO PRN (15:31)
[2024-09-16] MEDS ORDERED: Magnesium Replacement Protocol 1 EACH MISC MISCELLANE PRN (22:25)
[2024-09-16] MEDS: MAGNESIUM SULFATE-D5W PMX 1 GM in DEXTROSE/WATER 1 100ML.BAG IVPB ONE (23:15)
[2024-09-17 04:37] LABS: African American GFR (CKD) >90 (>60 ml/min/1.73 sqM); Anion Gap 8 mmol/L; Blood Urea Nitrogen 5 mg/dL (7-17); Calcium 8.5 mg/dL (8.4-10.2); Carbon Dioxide 21 mmol/L (22-30); Chloride 97 mmol/L (98-107); Glucose 101 mg/dL (74-99); Non-African American GFR(CKD) 85 (>60 ml/min/1.73 sqM); Potassium 3.8 mmol/L (3.5-5.1); Sodium 126 mmol/L (137-145)
[2024-09-17 05:14] LABS: Basophils # (A) 0.01 10*3/uL (0.00-0.10); Basophils % (A) 0.2 %; Eosinophils # (A) 0.11 10*3/uL (0.04-0.35); Eosinophils % (A) 2.2 %; HCT 26.6 % (37.2-46.3); HGB 9.5 g/dL (12.0-15.0); Lymphocytes # (A) 0.81 10*3/uL (0.90-5.00); Lymphocytes % (A) 16.3 %; MCH 33.3 pg (27.0-32.0); MCHC 35.7 g/dL (32.0-37.0); MCV 93.3 fL (80.0-97.0); Mean Platelet Volume 10.5 fL (9.5-12.2); Monocytes # (A) 0.34 10*3/uL (0.20-1.00); Monocytes % (A) 6.8 %; Neutrophils # (A) 3.69 10*3/uL (1.80-7.70); Neutrophils % (A) 74.1 %; Platelet Count 100 10*3/uL (140-440); RBC 2.85 10*6/uL (4.10-5.20); RDW 14.1 % (11.5-14.5); WBC 4.98 10*3/uL (4.50-10.00)
--- NOTE | 2024-09-17 05:44 | P.PN ---
Subjective Progress Note Date: 09/16/24 patient is a 84-year-old lady with past medical history significant for hypertension, breast cancer, hyperlipidemia brought to the ER because of not feeling well for the last few days. Patient was recently seen at [facility] for similar complaints. Patient stated that he has been having d ifficulty in breathing. Patient also complaining of headaches. Patient denies any fever or chills at home. Patient was complaining of back pain. Patient was complaining of increased frequency of urination and urgency. Denies any hematuria. There was no complaint of chest pain. Patient denies palpitations. There is no complaint of orthopnea or PND. There is no complaint of swelling of feet. Initial lab work done in the ER showed WBC 4.98, hemoglobin 11, platelet count 193, D-dimer 0.99, sodium 130, potassium 4.3, BUN 24, creatinine 1.25, lactate 4.6 calcium 9, bilirubin 1.3, AST 30, ALT 22, troponin 0.012 UA showing large amount of leukocyte Estrace, urine WBC more than 182, EKG done in the ER showed heart rate of 108, no ST segment elevation or depression seen, no T-wave inversions seen. Chest x-ray done in the ER showed no evidence of any pneumonia or fluid overload CT head done showed no acute intracranial process, No acute intracranial hemorrhage, midline shift or mass effect CT PE protocol was suboptimal study, no evidence of any PE at this time. Patient admitted to internal medicine service 09/15. Patient seen examined. States she feels much better. CT abdominal pelvis done showed mild fluid within the ascending colon consider gastroenteriti s. 09/16/2024 Patient is seen in follow-up with infectious disease following maintained on antibiotics in the form of ceftriaxone for urinary tract infection. Patient continues to report generalized weakness although is feeling better from previous day. Patient with continued generalized weakness will have PT/OT therapy evaluate the patient. Awaiting urine cultures along with blood cultures and will discuss further with infectious disease regarding discharge planning. Patient is afebrile with no reports of chest pain or shortness of breath. Patient with not much of an appetite although reports to eating and drinking. Upon labs with sodium trending down again and currently 127 with a potassium of 3.9 and creatinine is 0.7. Magnesium 1.6 and will be replaced. REVIEW OF SYSTEMS: CONSTITUTIONAL: No fever, no malaise,. CARDIOVASCULAR: No chest pain, no palpitations, no syncope. PULMONARY: No shortness of breath, no cough, GASTROINTESTINAL: No diarrhea, no nausea, no vomiting, no abdominal pain. NEUROLOGICAL: No headaches, reports of generalized weakness PHYSICAL EXAMINATION: GENERAL: The patient is alert and oriented x3, not in any acute distress. Well developed, elderly appearing HEENT: Pupils are round and equally reacting to light. EOMI. No scleral icterus. No conjunctival pallor. Normocephalic, atraumatic. No pharyngeal erythema. No thyromegaly. CARDIOVASCULAR: S1 and S2 muffled PULMONARY: Diminished breath sounds bilaterally otherwise chest is clear to auscultation, no wheezing or crackles. ABDOMEN: Soft, nontender, nondistended, normoactive bowel sounds. No palpable organomegaly. MUSCULOSKELETAL: No joint swelling or deformity. EXTREMITIES: No cyanosis, clubbing, or pedal edema. NEUROLOGICAL: Gross neurological examination did not reveal any focal deficits. SKIN: No rashes. Assessment: UTI, present on admission with possible failure of outpatient therapy Lactic acidosis secondary to above Hyponatremia, recently ongoing with recent hospitalization noted to be low sodium as well RUSS possibly secondary to UTI Hyperlipidemia hypertension history Generalized weakness with gait dysfunction GI prophylaxis DVT prophylaxis Full code Plan: Patient being followed by infectious disease maintained on ceftriaxone for urinary tract infection as patient had pain and burning with urination. Patient reports was started on a medication by primary care provider for urinary tract infection. Awaiting cultures and urine cultures thus far are negative. Blood cultures pending at this time with preliminary being negative Will discuss with infectious disease regarding discharge planning and continued antibiotic use Follow-up on repeat labs and will add gentle hydration as sodium appears low and patient clinically appears somewhat dehydrated. Sodium 127 and will consult and appreciate input and recommendations from nephrology Patient with generalized weakness will have PT/OT therapy evaluate and discuss further with case management/social work regarding discharge planning The impression and plan of care has been dictated by Cait Ruiz, Nurse Practitioner as directed. Dr. Des MD I have performed a history and examination and MDM of this patient, discussed the same with the dictator, and agree with the dictator's assessment and plan as written ,documented as a scribe. Based on total visit time, I have performed more than 50% of the visit. Objective - Vital Signs Vital signs: Vital Signs Temp 98.1 F 05/27/25 07:08 Pulse 75 09/16/24 07:08 Resp 18 09/16/24 07:08 BP 161/68 09/16/24 07:08 Pulse Ox 96 09/16/24 07:08 FiO2 Intake & Output 09/15/24 09/16/24 09/16/24 18:59 06:59 18:59 Intake Total 500 240 Balance 500 240 Intake: Oral 500 240 Other: Voiding Method Toilet Toilet # Voids 2 3 2 - Labs CBC & Chem 7: 09/17/24 03:14 09/17/24 03:14 Labs: Microbiology - Last 24 Hours (Table) 09/14/24 02:42 Blood Culture - Preliminary Blood 09/14/24 01:27 Urine Culture - Final Urine,Catheterized
[2024-09-17] MEDS: HEPARIN SODIUM,PORCINE 5,000 UNIT/ML 1 ML VIAL SQ SCH (07:50)
[2024-09-17] MEDS: UREA 15 GM POWD.PACK PO SCH (10:15)
--- NOTE | 2024-09-17 14:34 | CDI ---
Documentation Clarification Form Date: 09/17/2024 02:16:11 PM From: Sandee Jimenez RN, CCDS Phone: [phone] Admit Date: 09/14/2024 02:18:00 AM Patient Name: Sadia Boone Visit Number: [id number] Discharge Date: ATTENTION: The Clinical Documentation Specialists (CDI) and [facility] Coding Staff appreciate your assistance in clarifying documentation. Please respond to the clarification below the line at the bottom and electronically sign. The CDI & [facility] Coding staff will review the response and follow-up if needed. Please note: Queries are made part of the Legal Health Record. If you have any questions, please contact the author of this message via ITS. Doctor. Cait HERNANDEZ Sepsis is documented in the ID consult and progress notes starting on 09/14/24 which may lack sufficient clinical evidence/support in the medical record. Additional clarification is requested. History/Risk Factors: Hypertension Clinical Indicators: 84-year-old female with complaints not feeling well. Report: nausea but no vomiting. Reports: weakness, Denies: fever, chills. She is alert, oriented X3. 09/14 VS: (00.45) 98/67 73 16 100.5 99% RA, (:00) 124/77 93 20 99.9 98% RA (05:00) 93/42 94 20 98.7 99% RA 09/13 Labs: (20:00) WBC 4.98, Neutrophils 4.32, NA 130, BUN 24, CR 1.25, Lactic acid 4.6 09/14 UA: Leukocyte Esterase -large, Urine WBC Moderate 09/14 Urine Culture Final: Negative Treatment: .Saline 0.9% 1,000 ML Bolus>500 MLS IV Bolus 09/13 Rocephin 2 GM IVPB Once, 09/14 > Q 24 HRS 09/15--09/17 Please clarify if Sepsis is a valid diagnosis? [ ] No, Sepsis is ruled out [ x ] Yes, Sepsis is present as evidence by (additional clinical support): ___Secondary to urinary tract infection with failure of outpatient treatment [ ] Other (please specify diagnosis) [ ] Unable to determine (Template Last Revised: September 2023) MTDD
--- NOTE | 2024-09-17 15:31 | P.NPCON ---
History of Present Illness - Reason for Consult hyponatremia - History of Present Illness Reason for consultation: Hyponatremia History of present illness: Patient is a 84-year-old female seen in renal consultation for hyponatremia. Patient's sodium on admission was 130 and improved to 133 on September 14, 2024 and is down to 126 today. Patient states on Mother's Day weekend she felt dizzy and fell. She was evaluated at [facility] and at that time was noted to have a low sodium level and also a UTI. Patient says she completed IV antibiotics at that time for UTI and was subsequently discharged home. She again felt dizzy and lightheaded and came to the hospital. She has a history of breast cancer and has undergone left mastectomy and is currently maintained on chemotherapy outpatient. She also receives IV infusions monthly. Oral intake has been fair. Denies vomiting or diarrhea. Denies history of kidney disease. No vomiting or diarrhea. No gross hematuria or dysuria. Denies use of diuretics. Vital signs are stable. General: No acute distress. HEENT: Head exam is unremarkable. LUNGS: No audible rhonchi or wheezes. HEART: Rate and Rhythm are regular. ABDOMEN: Nontender. EXTREMITITES: No edema. Past Medical History Past Medical History: Hyperlipidemia, Hypertension History of Any Multi-Drug Resistant Organisms: None Reported Past Surgical History: Appendectomy Additional Past Surgical History / Comment(s): lumpectomy left breast for cancer finished with radiation treatments 2017. Past Anesthesia/Blood Transfusion Reactions: No Reported Reaction Past Psychological History: No Psychological Hx Reported Smoking Status: Former smoker Past Alcohol Use History: None Reported Past Drug Use History: None Reported - Past Family History Father Family Medical History: Cancer Additional Family Medical History / Comment(s): lung ca Mother Additional Family Medical History / Comment(s): parkinson Sister(s) Family Medical History: Cancer Additional Family Medical History / Comment(s): 9 siblings, 3 have . 2 sisters had breast CA, one sister had spinal CA. one sister had lung CA. one Brother dies of parkinsons, one brother has kidney problems and heart failure aicd/pacer. Medications and Allergies Home Medications Medication Instructions Recorded Confirmed Type Montelukast [Singulair] 10 mg PO HS 06/16/19 09/14/24 History Omeprazole 20 mg PO AC-BID 06/16/19 09/14/24 History Vit C/E/Zn/Coppr/Lutein/Zeaxan 1 cap PO BID 06/16/19 09/14/24 History [Preservision Areds 2 Softgel] Abemaciclib [Verzenio] 100 mg PO BID 09/14/24 09/14/24 History Calcium 2,000mg 2,000 mg PO HS 09/14/24 09/14/24 History Cholecalciferol (Vitamin D3) 50 mcg PO DAILY 09/14/24 09/14/24 History [Vitamin D3 (50 Mcg = 2000 Iu)] DULoxetine HCL [Cymbalta] 30 mg PO BID 09/14/24 09/14/24 History Ezetimibe [Zetia] 10 mg PO DAILY 09/14/24 09/14/24 History Fluocinonide 0.05% Solution 1 applic TOPICAL HS 09/14/24 09/14/24 History Fulvestrant 500 mg IM Q35D 09/14/24 09/16/24 History Hydroxyurea [Hydrea] 500 mg PO DAILY 09/14/24 09/14/24 History Losartan Potassium 100 mg PO DAILY 09/14/24 09/14/24 History Melatonin 10 mg PO HS 09/14/24 09/14/24 History Ondansetron Odt [Zofran Odt] 8 mg PO DAILY 09/14/24 09/14/24 History Allergies Allergy/AdvReac Type Severity Reaction Status Date / Time codeine Allergy Unknown Verified 09/14/24 09:08 Physical Exam Vitals: Vital Signs Temp Pulse Resp BP Pulse Ox 09/17/24 13:54 98.1 F 75 18 145/64 96 09/17/24 06:57 98.3 F 71 16 152/66 97 09/17/24 02:25 97.9 F 80 16 141/75 09/16/24 19:37 98.3 F 79 17 127/63 96 Intake and Output 09/17/24 09/17/24 09/17/24 06:59 14:59 22:59 Other: Voiding Method Toilet # Voids 1 Results - Lab Results Most recent lab results Calcium 8.5 mg/dL (8.4-10.2) 09/17/24 03:14 Magnesium 2.0 mg/dL (1.6-2.3) 09/17/24 03:14 09/17/24 03:14 09/17/24 03:14 Assessment and Plan Plan: Assessment: 1. Hyponatremia, euvolemic. 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 Sodium level 126 today. TSH normal. 2. Breast cancer status postmastectomy on chemotherapy outpatient. 3. Benign hypertension. Stable. 4. UTI on antibiotics. Plan: Hep-Lock IV fluids. Add urea. Add fluid restriction. Follow-up urine studies. Repeat labs in the morning. Thank you for the consultation. I will continue to follow the patient with you during her hospital stay
[2024-09-18 02:09] VITALS: RESP 16; TEMP 98.4
[2024-09-18 08:38] LABS: Magnesium 1.9 mg/dL (1.5-2.4)
[2024-09-18 08:41] LABS: BUN/Creat Ratio 33.86 Ratio (12.00-20.00); Blood Urea Nitrogen 23.7 mg/dL (9.0-27.0); Calcium 8.8 mg/dL (8.7-10.3); Carbon Dioxide 22.4 mmol/L (21.6-31.8); Chloride 100 mmol/L (96-109); Glucose 106 mg/dL (70-110); Potassium 4.1 mmol/L (3.5-5.5); Sodium 132 mmol/L (135-145)
--- NOTE | 2024-09-18 09:00 | P.PN ---
Subjective Progress Note Date: 09/17/24 patient is a 84-year-old lady with past medical history significant for hypertension, breast cancer, hyperlipidemia brought to the ER because of not feeling well for the last few days. Patient was recently seen at [facility] for similar complaints. Patient stated that he has been having d ifficulty in breathing. Patient also complaining of headaches. Patient denies any fever or chills at home. Patient was complaining of back pain. Patient was complaining of increased frequency of urination and urgency. Denies any hematuria. There was no complaint of chest pain. Patient denies palpitations. There is no complaint of orthopnea or PND. There is no complaint of swelling of feet. Initial lab work done in the ER showed WBC 4.98, hemoglobin 11, platelet count 193, D-dimer 0.99, sodium 130, potassium 4.3, BUN 24, creatinine 1.25, lactate 4.6 calcium 9, bilirubin 1.3, AST 30, ALT 22, troponin 0.012 UA showing large amount of leukocyte Estrace, urine WBC more than 182, EKG done in the ER showed heart rate of 108, no ST segment elevation or depression seen, no T-wave inversions seen. Chest x-ray done in the ER showed no evidence of any pneumonia or fluid overload CT head done showed no acute intracranial process, No acute intracranial hemorrhage, midline shift or mass effect CT PE protocol was suboptimal study, no evidence of any PE at this time. Patient admitted to internal medicine service 09/15. Patient seen examined. States she feels much better. CT abdominal pelvis done showed mild fluid within the ascending colon consider gastroenteriti s. 09/16/2024 Patient is seen in follow-up with infectious disease following maintained on antibiotics in the form of ceftriaxone for urinary tract infection. Patient continues to report generalized weakness although is feeling better from previous day. Patient with continued generalized weakness will have PT/OT therapy evaluate the patient. Awaiting urine cultures along with blood cultures and will discuss further with infectious disease regarding discharge planning. Patient is afebrile with no reports of chest pain or shortness of breath. Patient with not much of an appetite although reports to eating and drinking. Upon labs with sodium trending down again and currently 127 with a potassium of 3.9 and creatinine is 0.7. Magnesium 1.6 and will be replaced. 09/17/2024 Patient is seen in follow-up maintained on antibiotics with infectious disease following and awaiting cultures to finalize. Patient slightly improved and awaiting PT/OT therapy evaluation. Patient continues to have weakness and awaiting a.m. labs. Sodium is low and recommend nephrology consultation which is pending at this time. Encouraged increase activity as tolerated REVIEW OF SYSTEMS: CONSTITUTIONAL: No fever, no malaise,. CARDIOVASCULAR: No chest pain, no palpitations, no syncope. PULMONARY: No shortness of breath, no cough, GASTROINTESTINAL: No diarrhea, no nausea, no vomiting, no abdominal pain. NEUROLOGICAL: No headaches, reports of generalized weakness PHYSICAL EXAMINATION: GENERAL: The patient is alert and oriented x3, not in any acute distress. Well developed, elderly appearing HEENT: Pupils are round and equally reacting to light. EOMI. No scleral icterus. No conjunctival pallor. Normocephalic, atraumatic. No pharyngeal erythema. No thyromegaly. CARDIOVASCULAR: S1 and S2 muffled PULMONARY: Diminished breath sounds bilaterally otherwise chest is clear to auscultation, no wheezing or crackles. ABDOMEN: Soft, nontender, nondistended, normoactive bowel sounds. No palpable organomegaly. MUSCULOSKELETAL: No joint swelling or deformity. EXTREMITIES: No cyanosis, clubbing, or pedal edema. NEUROLOGICAL: Gross neurological examination did not reveal any focal deficits. SKIN: No rashes. Assessment: UTI, present on admission with possible failure of outpatient therapy Lactic acidosis secondary to above Hyponatremia, recently ongoing with recent hospitalization noted to be low sodium as well RUSS possibly secondary to UTI Hyperlipidemia hypertension history Generalized weakness with gait dysfunction GI prophylaxis DVT prophylaxis Full code Plan: Patient being followed by infectious disease maintained on ceftriaxone for urinary tract infection as patient had pain and burning with urination. Patient reports was started on a medication by primary care provider for urinary tract infection. Awaiting cultures and urine cultures thus far are negative. Blood cultures pending at this time with preliminary being negative Will discuss with infectious disease regarding discharge planning and continued antibiotic use Follow-up on repeat labs and will add gentle hydration as sodium appears low and patient clinically appears somewhat dehydrated. Sodium remains low with nephrology now following and is being given urea we will follow-up on repeat labs in the a.m. Patient with generalized weakness awaiting PT/OT therapy evaluation and discuss further with case management/social work regarding discharge planning The impression and plan of care has been dictated by Cait Ruiz, Nurse Practitioner as directed. Dr. Des MD I have performed a history and examination and MDM of this patient, discussed the same with the dictator, and agree with the dictator's assessment and plan as written ,documented as a scribe. Based on total visit time, I have performed more than 50% of the visit. Objective - Vital Signs Vital signs: Vital Signs Temp 98.4 F 09/18/24 01:13 Pulse 71 09/18/24 01:13 Resp 16 09/18/24 01:13 BP 141/55 09/18/24 01:13 Pulse Ox 98 09/18/24 01:13 FiO2 Intake & Output 09/17/24 09/18/24 09/18/24 18:59 06:59 18:59 Other: Voiding Method Toilet Toilet # Voids 3 1 - Labs CBC & Chem 7: 09/17/24 03:14 09/18/24 05:26 Labs: Abnormal Lab Results - Last 24 Hours (Table) 09/16/24 09/17/24 09/18/24 Range/Units 09:53 10:23 05:26 Sodium 132 L (135-145) mmol/L BUN/Creatinine Ratio 33.86 H (12.00-20.00) Ratio Osmolality 274 L (275-295) mOsm/kg Urine Osmolality 140 L (400-1100) mOsm/kg Microbiology - Last 24 Hours (Table) 09/14/24 02:42 Blood Culture - Preliminary Blood
--- NOTE | 2024-09-18 11:39 | P.PN ---
Subjective Patient is seen in follow-up for hyponatremia. Sodium level 132 today. Oral intake is better. No active complaints. Vital signs are stable. General: No acute distress. HEENT: Head exam is unremarkable. LUNGS: No audible rhonchi or wheezes. HEART: Rate and Rhythm are regular. ABDOMEN: Nontender. EXTREMITITES: No edema. Objective - Vital Signs Vital signs: Vital Signs Temp 98.4 F 09/18/24 07:46 Pulse 78 09/18/24 07:46 Resp 16 09/18/24 07:46 BP 131/71 09/18/24 07:46 Pulse Ox 95 09/18/24 07:46 FiO2 Intake & Output 09/17/24 09/18/24 09/18/24 18:59 06:59 18:59 Other: Voiding Method Toilet Toilet Toilet # Voids 3 1 - Labs CBC & Chem 7: 09/17/24 03:14 09/18/24 05:26 Labs: Abnormal Lab Results - Last 24 Hours (Table) 09/16/24 09/17/24 09/18/24 Range/Units 09:53 10:23 05:26 Sodium 132 L (135-145) mmol/L BUN/Creatinine Ratio 33.86 H (12.00-20.00) Ratio Osmolality 274 L (275-295) mOsm/kg Urine Osmolality 140 L (400-1100) mOsm/kg Microbiology - Last 24 Hours (Table) 09/14/24 02:42 Blood Culture - Preliminary Blood Assessment and Plan Plan: Assessment: 1. Hyponatremia, euvolemic. Etiology is excess fluid intake as urine is quite dilute. Sodium level 132 today. TSH normal. Urine sodium 43 and urine osmolality 140. 2. Breast cancer status postmastectomy on chemotherapy outpatient. 3. Benign hypertension. Stable. 4. UTI on antibiotics. Plan: Off IV fluids. Maintain urea. Can be discontinued 3 days postdischarge. Encouraged increased protein intake. Maintain fluid restriction of less than 50 to 55 ounces per day upon discharge. Repeat BMP and magnesium level 3 to 4 days postdischarge. Follow-up outpatient 1 week postdischarge. Case discussed with primary team.
--- NOTE | 2024-09-18 16:21 | P.PN ---
Subjective Progress Note Date: 09/18/24 Principal diagnosis: Reason for follow-up is UTI Patient is a 84-year-old female with a past medical history significant for hyperlipidemia hypertension former smoker presenting to the hospital for evaluation of not feeling well and weakness, patient diagnosed with a symptomatic UTI prompting this consultation. On today's evaluation that is 09/18/2024,the patient denies any fever or any chills, patient is breathing comfortably on room air, the patient denies chest pain shortness of breath and no significant cough, patient denies abdominal pain, no nausea vomiting or diarrhea. Patient mention feeling better. Patient did have a creatinine 0.7 no CBC was done today culture have been negative so far Objective - Vital Signs Vital signs: Vital Signs Temp 98.4 F 09/18/24 07:46 Pulse 78 09/18/24 07:46 Resp 16 09/18/24 07:46 BP 131/71 09/18/24 07:46 Pulse Ox 95 09/18/24 07:46 FiO2 Intake & Output 09/17/24 09/18/24 09/18/24 18:59 06:59 18:59 Other: Voiding Method Toilet Toilet Toilet # Voids 3 1 - Exam GENERAL DESCRIPTION: An elderly female lying in bed in no distress RESPIRATORY SYSTEM: Unlabored breathing , decreased breath sounds at bases HEART: S1 S2 regular rate and rhythm , ABDOMEN: Soft , no tenderness EXTREMITIES: No edema feet - Labs CBC & Chem 7: 09/17/24 03:14 09/18/24 05:26 Labs: Abnormal Lab Results - Last 24 Hours (Table) 09/16/24 09/17/24 09/18/24 Range/Units 09:53 10:23 05:26 Sodium 132 L (135-145) mmol/L BUN/Creatinine Ratio 33.86 H (12.00-20.00) Ratio Osmolality 274 L (275-295) mOsm/kg Urine Osmolality 140 L (400-1100) mOsm/kg Microbiology - Last 24 Hours (Table) 09/14/24 02:42 Blood Culture - Preliminary Blood Assessment and Plan (1) Sepsis Status: Acute Code(s): A41.9 - SEPSIS, UNSPECIFIED ORGANISM SNOMED Code(s): 65934279 (2) UTI (urinary tract infection) Status: Acute Code(s): N39.0 - URINARY TRACT INFECTION, SITE NOT SPECIFIED SNOMED Code(s): 30891141 Plan: 1patient presented hospital with sepsis in this patient noted to have fever tachycardia elevated lactic acid meeting criteria for SIRS/sepsis source likely urinary patient did have positive UA and urinary frequency with risk factor of diarrhea concerning for symptomatic UTI likely from enteric gram-negative pathogen 2-patient did have a CT completed with concern for possible gastroenteritis however no diarrhea reported by the nursing staff 3patient seem to have shown clinical improvement on Rocephin recommended short course of oral Ceftin on discharge discussed with [employer] for admitting team Dictation was produced using [employer] dictation software. please excuse any grammatical, word or spelling errors. Time with Patient: Less than 30
--- NOTE | 2024-09-18 16:21 | P.PN ---
Subjective Progress Note Date: 09/17/24 Principal diagnosis: Reason for follow-up is UTI Patient is a 84-year-old female with a past medical history significant for hyperlipidemia hypertension former smoker presenting to the hospital for evaluation of not feeling well and weakness, patient diagnosed with a symptomatic UTI prompting this consultation. On today's evaluation that is 09/17/2024, Patient is afebrile this morning patient denies having any chest pain shortness of breath or cough, the patient is currently on room air, patient denies any abdominal pain no diarrhea no nausea no vomiting Patient white count is 4.98, creatinine 0.60 culture have been negative so far Objective - Vital Signs Vital signs: Vital Signs Temp 98.3 F 09/17/24 06:57 Pulse 71 09/17/24 06:57 Resp 16 09/17/24 06:57 BP 152/66 09/17/24 06:57 Pulse Ox 97 09/17/24 06:57 FiO2 Intake & Output 09/16/24 09/17/24 09/17/24 18:59 06:59 18:59 Other: Voiding Method Toilet Toilet Toilet # Voids 2 1 - Exam GENERAL DESCRIPTION: An elderly female lying in bed in no distress RESPIRATORY SYSTEM: Unlabored breathing , decreased breath sounds at bases HEART: S1 S2 regular rate and rhythm , ABDOMEN: Soft , no tenderness EXTREMITIES: No edema feet - Labs CBC & Chem 7: 09/17/24 03:14 09/18/24 05:26 Labs: Abnormal Lab Results - Last 24 Hours (Table) 09/17/24 09/17/24 Range/Units 03:14 03:14 RBC 2.85 L (4.10-5.20) 10*6/uL Hgb 9.5 L (12.0-15.0) g/dL Hct 26.6 L (37.2-46.3) % MCH 33.3 H (27.0-32.0) pg Plt Count 100 L (140-440) 10*3/uL Lymphocytes # 0.81 L (0.90-5.00) 10*3/uL Sodium 126 L (137-145) mmol/L Chloride 97 L (98-107) mmol/L Carbon Dioxide 21 L (22-30) mmol/L BUN 5 L (7-17) mg/dL Glucose 101 H (74-99) mg/dL Microbiology - Last 24 Hours (Table) 09/14/24 02:42 Blood Culture - Preliminary Blood Assessment and Plan (1) Sepsis Status: Acute Code(s): A41.9 - SEPSIS, UNSPECIFIED ORGANISM SNOMED Code(s): 51719922 (2) UTI (urinary tract infection) Status: Acute Code(s): N39.0 - URINARY TRACT INFECTION, SITE NOT SPECIFIED SNOMED Code(s): 91493840 Plan: 1patient presented hospital with sepsis in this patient noted to have fever tachycardia elevated lactic acid meeting criteria for SIRS/sepsis source likely urinary patient did have positive UA and urinary frequency with risk factor of diarrhea concerning for symptomatic UTI likely from enteric gram-negative pathogen 2-patient did have a CT completed with concern for possible gastroenteritis however no diarrhea reported by the nursing staff 3patient seem to have shown clinical improvement on Rocephin to continue while waiting for the culture to finalize Dictation was produced using [employer] dictation software. please excuse any grammatical, word or spelling errors. Time with Patient: Less than 30
[2024-09-18 16:27] VITALS: BP 152/74; PULSE 83
--- NOTE | 2024-09-19 15:59 | P.DS ---
Providers Date of admission: 09/14/24 02:18 Expected date of discharge: 09/18/24 Attending physician: Vickey Garzon MD Consults: 09/14/24 10:12 Consult Physician Routine Consulting Provider: Duncan Cortez Consult Reason/Comments: Complicated UTI Do you want consulting provider notified?: Yes 09/17/24 05:39 Consult Physician Urgent Consulting Provider: Constantino Morse Consult Reason/Comments: hyponatremia, weakness Do you want consulting provider notified?: Yes Primary care physician: Andi Ho MD Hospital Course: Final Diagnosis UTI, present on admission with failure of outpatient therapy, urine cultures negative Lactic acidosis secondary to above Hyponatremia, recently ongoing with recent hospitalization noted to be low sodium as well RUSS likely secondary to UTI Hyperlipidemia hypertension history Generalized weakness with gait dysfunction GI prophylaxis DVT prophylaxis Full code Discharge disposition Patient is being discharged in a stable condition with guarded prognosis to home. Patient will follow-up with Dr. Ho in the outpatient setting upon discharge. Patient is to continue with Ceftin 500 mg twice daily for the next 1 week per ID recommendations as scheduled. Total time taken is greater than 35 minutes. Hospital course This is an 84-year-old female who was recently admitted with urinary tract infection with failure of outpatient treatment with sepsis, present on admission. Patient was given antibiotics by her primary care provider showing no improvements and actually having worsening symptoms and increased weakness came to the ER for further evaluation. Patient admitted with UTI and noted hyponatremia. Patient reports she was recently hospitalized at [facility] and was noted to have low sodium and was told to continue with fluid restrictions and sent home. Patient is being followed by infectious disease maintained on antibiotics and urine cultures repeated were negative and blood cultures negative as well. Patient showing some clinical improvement on ceftriaxone and will transition to oral Ceftin 500 mg twice daily for 1 week per ID recommendations. Patient also being evaluated by nephrology for hyponatremia and was to continue with urea 15 mg twice daily for the next 3 days. Prescription was provided on paper prescription as this medication is unable to be E scribed. Patient also to follow-up outpatient with nephrology and also repeat labs in the next few days. Patient was evaluated by physical therapy for generalized weakness and has been up and walking and has been cleared for discharge home. Patient reports to feeling slightly improved and has been instructed to take it easy for the next few days and follow-up outpatient with primary care provider. Please refer to other consultation notes for further HPI. Currently no reports of chest pain, shortness of breath, or palpitations. Patient is afebrile. No reports of nausea or vomiting and patient is tolerating diet. Patient will be discharged home today. Physical exam: Gen: This is a 84-year-old female who is awake, alert and oriented x 3, thin built, elderly appearing, well-developed HEENT: Head is atraumatic, normocephalic. Pupils equal, round. Sclerae is anicteric. NECK: Supple. No JVD. No lymphadenopathy. No thyromegaly. LUNGS: Diminished breath sounds bilaterally otherwise clear to auscultation. No wheezes or rhonchi. No intercostal retractions. HEART: S1, S2 are muffled ABDOMEN: Soft. Thin. Bowel sounds are present. No masses. No tenderness. EXTREMITIES: No pedal edema. No calf tenderness. NEUROLOGICAL: Patient is awake, alert and oriented x3. Cranial nerves 2 through 12 are grossly intact. Please refer to medication reconciliation sheet for a list of medications. The impression and plan of care has been dictated by Cait Ruzi, Nurse Practitioner as directed. Dr. Des MD I have performed a history and examination and MDM of this patient, discussed the same with the dictator, and agree with the dictator's assessment and plan as written ,documented as a scribe. Based on total visit time, I have performed more than 50% of the visit. Patient Condition at Discharge: Good Plan - Discharge Summary Discharge Rx Participant: Yes New Discharge Prescriptions: New Acetaminophen Tab [Tylenol] 650 mg PO Q6HR PRN tab PRN Reason: Mild Pain Or Fever > 100.5 cefuroxime axetiL [Ceftin] 500 mg PO BID 7 Days #14 tab Lidocaine 4% Patch 1 patch TOPICAL DAILY #30 patch Continue Vit C/E/Zn/Coppr/Lutein/Zeaxan [Preservision Areds 2 Softgel] 1 cap PO BID Omeprazole 20 mg PO AC-BID Montelukast [Singulair] 10 mg PO HS Melatonin 10 mg PO HS Fluocinonide 0.05% Solution 1 applic TOPICAL HS DULoxetine HCL [Cymbalta] 30 mg PO BID Cholecalciferol (Vitamin D3) [Vitamin D3 (50 Mcg = 2000 Iu)] 50 mcg PO DAILY Calcium 2,000mg 2,000 mg PO HS Losartan Potassium 100 mg PO DAILY Ezetimibe [Zetia] 10 mg PO DAILY Abemaciclib [Verzenio] 100 mg PO BID Fulvestrant 500 mg IM Q35D Ondansetron Odt [Zofran ODT] 8 mg PO DAILY Discontinued Hydroxyurea [Hydrea] 500 mg PO DAILY Discharge Medication List Montelukast [Singulair] 10 mg PO HS 06/16/19 [History] Omeprazole 20 mg PO AC-BID 06/16/19 [History] Vit C/E/Zn/Coppr/Lutein/Zeaxan [Preservision Areds 2 Softgel] 1 cap PO BID 06/16/19 [History] Abemaciclib [Verzenio] 100 mg PO BID 09/14/24 [History] Calcium 2,000mg 2,000 mg PO HS 09/14/24 [History] Cholecalciferol (Vitamin D3) [Vitamin D3 (50 Mcg = 2000 Iu)] 50 mcg PO DAILY 09/14/24 [History] DULoxetine HCL [Cymbalta] 30 mg PO BID 09/14/24 [History] Ezetimibe [Zetia] 10 mg PO DAILY 09/14/24 [History] Fluocinonide 0.05% Solution 1 applic TOPICAL HS 09/14/24 [History] Fulvestrant 500 mg IM Q35D 09/14/24 [History] Losartan Potassium 100 mg PO DAILY 09/14/24 [History] Melatonin 10 mg PO HS 09/14/24 [History] Ondansetron Odt [Zofran ODT] 8 mg PO DAILY 09/14/24 [History] Acetaminophen Tab [Tylenol] 650 mg PO Q6HR PRN tab 09/18/24 [Rx] Lidocaine 4% Patch 1 patch TOPICAL DAILY #30 patch 09/18/24 [Rx] cefuroxime axetiL [Ceftin] 500 mg PO BID 7 Days #14 tab 09/18/24 [Rx] Follow up Appointment(s)/Referral(s): Andi Ho MD [Primary Care Provider] - 09/23/24 11:00 am Constantino Morse DO [STAFF PHYSICIAN] - 1 Week (Office is not answering at nancy of discharge. Please call for follow-up appointment) Ambulatory/Diagnostic Orders: Basic Metabolic Panel [LAB.AMB] Time Frame: 3 Days, Location: None Selected Patient Instructions/Handouts: Urinary Tract Infection in Women (DC), Hyponatremia (DC), Sepsis (DC), Fluid Restriction (DC) Activity/Diet/Wound Care/Special Instructions: Activity limited until follow-up Follow-up with primary care provider Continue taking medications as prescribed Continue with your URe-NA on discharge for 3 days and then discontinue Repeat labs in 2 to 3 days to monitor kidney functions and electrolytes Continue antibiotics until finished per ID recommendations Continue with fluid restrictions of 50 to 55 ounces total throughout the day and avoid excess water intake Encouraged oral intake and protein Discharge Disposition: HOME SELF-CARE
== END 2024-09-18 15:16 | disposition home or self-care (01) | DRG 872 ==
LOC: EC 21:05 → 4SSUR 09-14 02:18
PROVIDERS: ADMIT Internal Medicine; ATTEND Internal Medicine
DX: A41.9 Sepsis, unspecified organism (principal); E22.2 Syndrome of inappropriate secretion of antidiuretic hormone; E87.20 Acidosis, unspecified; C50.912 Malignant neoplasm of unspecified site of left female breast; I10 Essential (primary) hypertension; N39.0 Urinary tract infection, site not specified; N17.9 Acute kidney failure, unspecified; E78.5 Hyperlipidemia, unspecified; Z90.12 Acquired absence of left breast and nipple; Z79.899 Other long term (current) drug therapy; Z87.891 Personal history of nicotine dependence; Z79.811 Long term (current) use of aromatase inhibitors
CPT/HCPCS: 36415; 70450; 71046; 71275; 74177; 76770; 80048; 80053; 81001; 83605; 83735; 83880; 83930; 83935; 84145; 84300; 84443; 84484; 85025; 85379; 85610; 85652; 85730; 86140; 87040; 87086; 93005; 93970; 96361; 96365; 96375; 96376; 99291

== ENCOUNTER 2024-09-19 15:12 | Emergency (ER) | payer MEDICARE ==
[2024-09-19 15:37] VITALS: TEMP 98.3
--- NOTE | 2024-09-19 15:50 | ED ---
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 The patient states she is on fluid restriction. She was attempting to get into the vehicle, felt very lightheaded and nearly passed out. She did not note chest pain, palpitations, diaphoresis. EMS was called to the scene did give 500 mL of saline solution and transported the patient here. Patient states that she does feel better than she did on the scene. MD Complaint: near syncope Onset/Timin -: hour(s) Timing: sudden onset, now resolved Description: lightheadedness History of Same: Yes History of Trauma: No Severity: moderate Improves With: rest Worsens With: exertion Associated Symptoms: denies other symptoms - Related Data Home Medications Medication Instructions Recorded Confirmed Montelukast [Singulair] 10 mg PO HS 06/16/19 09/14/24 Omeprazole 20 mg PO AC-BID 06/16/19 09/14/24 Vit C/E/Zn/Coppr/Lutein/Zeaxan 1 cap PO BID 06/16/19 09/14/24 [Preservision Areds 2 Softgel] Abemaciclib [Verzenio] 100 mg PO BID 09/14/24 09/14/24 Calcium 2,000mg 2,000 mg PO HS 09/14/24 09/14/24 Cholecalciferol (Vitamin D3) 50 mcg PO DAILY 09/14/24 09/14/24 [Vitamin D3 (50 Mcg = 2000 Iu)] DULoxetine HCL [Cymbalta] 30 mg PO BID 09/14/24 09/14/24 Ezetimibe [Zetia] 10 mg PO DAILY 09/14/24 09/14/24 Fluocinonide 0.05% Solution 1 applic TOPICAL HS 09/14/24 09/14/24 Fulvestrant 500 mg IM Q35D 09/14/24 09/16/24 Losartan Potassium 100 mg PO DAILY 09/14/24 09/14/24 Melatonin 10 mg PO HS 09/14/24 09/14/24 Ondansetron Odt [Zofran ODT] 8 mg PO DAILY 09/14/24 09/14/24 Previous Rx's Medication Instructions Recorded Acetaminophen Tab [Tylenol] 650 mg PO Q6HR PRN tab 09/18/24 Lidocaine 4% Patch 1 patch TOPICAL DAILY #30 patch 09/18/24 cefuroxime axetiL [Ceftin] 500 mg PO BID 7 Days #14 tab 09/18/24 Sodium Chloride Tab 1 gm PO BID #6 tablet 09/19/24 Sodium Chloride Tab 1 gm PO BID #6 tablet 09/19/24 predniSONE [Deltasone] 20 mg PO BID #8 tab 09/19/24 predniSONE [Deltasone] 20 mg PO BID #8 tab 09/19/24 Allergies Allergy/AdvReac Type Severity Reaction Status Date / Time codeine Allergy Unknown Verified 09/14/24 09:08 Review of Systems ROS Statement: Those systems with pertinent positive or pertinent negative responses have been documented in the HPI. ROS Other: All systems not noted in ROS Statement are negative. Constitutional: Denies: fever, chills, weakness Respiratory: Denies: cough, dyspnea Cardiovascular: Denies: chest pain, palpitations, edema Gastrointestinal: Denies: abdominal pain, nausea, vomiting Genitourinary: Denies: dysuria Musculoskeletal: Reports: back pain (Chronic) Skin: Denies: rash Neurological: Denies: headache, weakness, numbness Past Medical History Past Medical History: Hyperlipidemia, Hypertension History of Any Multi-Drug Resistant Organisms: None Reported Past Surgical History: Appendectomy Additional Past Surgical History / Comment(s): lumpectomy left breast for cancer finished with radiation treatments 2017. Past Anesthesia/Blood Transfusion Reactions: No Reported Reaction Past Psychological History: No Psychological Hx Reported Smoking Status: Former smoker Past Alcohol Use History: None Reported Past Drug Use History: None Reported - Past Family History Father Family Medical History: Cancer Additional Family Medical History / Comment(s): lung ca Mother Additional Family Medical History / Comment(s): parkinson Sister(s) Family Medical History: Cancer Additional Family Medical History / Comment(s): 9 siblings, 3 have . 2 sisters had breast CA, one sister had spinal CA. one sister had lung CA. one Brother dies of parkinsons, one brother has kidney problems and heart failure aicd/pacer. General Exam Limitations: no limitations General appearance: alert, in no apparent distress Head exam: Present: atraumatic, normocephalic Eye exam: Present: normal appearance. Absent: scleral icterus, conjunctival injection ENT exam: Present: normal oropharynx Neck exam: Present: normal inspection, full ROM Respiratory exam: Present: normal lung sounds bilaterally. Absent: respiratory distress, wheezes, rales, rhonchi, stridor, accessory muscle use Cardiovascular Exam: Present: regular rate, normal rhythm, normal heart sounds. Absent: systolic murmur, diastolic murmur, rubs, gallop GI/Abdominal exam: Present: soft. Absent: distended, tenderness, guarding, rebound, rigid, mass Extremities exam: Present: normal inspection, normal capillary refill. Absent: pedal edema, calf tenderness Back exam: Present: normal inspection. Absent: CVA tenderness (R), CVA tenderness (L) Neurological exam: Present: alert Skin exam: Present: warm, dry, intact, normal color. Absent: rash Course Vital Signs 09/19/24 09/19/24 09/19/24 15:25 18:24 19:49 Temperature 98.3 F Pulse Rate 81 75 77 Respiratory 16 16 17 Rate Blood Pressure 116/54 103/44 90/65 O2 Sat by Pulse 94 L 99 95 Oximetry EKG Findings - EKG Results: EKG: interpreted by REJI, sinus rhythm (With sinus arrhythmia rate 88 bpm), normal axis, normal QRS, normal ST/T, no acute changes Medical Decision Making - Medical Decision Making The patient had chest x-ray that I interpreted as negative for acute infiltrate, pneumothorax, congestive heart failure Was pt. sent in by a medical professional or institution (, PA, AGENT, urgent care, hospital, or custodial...) When possible be specific @ -[No] Did you speak to anyone other than the patient for history (EMS, parent, family, police, friend...)? What history was obtained from this source @ -[No] Did you review nursing and triage notes (agree or disagree)? Why? @ -[I reviewed and agree with nursing and triage notes] Were old charts reviewed (outside hosp., previous admission, EMS record, old EKG, old radiological studies, urgent care reports/EKG's, custodial records)? Report findings @ -[No old charts were reviewed] Differential Diagnosis (chest pain, altered mental status, abdominal pain women, abdominal pain men, vaginal bleeding, weakness, fever, dyspnea, syncope, he adache, dizziness, GI bleed, back pain, seizure, CVA, palpatations, mental health, musculoskeletal)? @ -[Differential Syncope: Valvular disease, hypertrophic cardiomyopathy, pulmonary embolism, tamponade, tachycardia, bradycardia, WA, hypovolemia, hemorrhage, dissection, anemia, intracranial hemorrhage, seizure, hypoglycemia, carbon monoxide poisoning, this is not meant to be an all-inclusive list. EKG interpreted by me (3pts min.). @ -[I interpreted as above] X-rays interpreted by me (1pt min.). @ -[I interpreted as above CT interpreted by me (1pt min.). @ -[None done] U/S interpreted by me (1pt. min.). @ -[None done] What testing was considered but not performed or refused? (CT, X-rays, U/S, labs)? Why? @ -[None] What meds were considered but not given or refused? Why? @ -[None] Did you discuss the management of the patient with other professionals (professionals i.e. , PA, AGENT, lab, RT, psych nurse, social media marketing manager, infantry weapons officer, teacher, morals squad police officer, medical case worker)? Give summary @ -[No] Was smoking cessation discussed for >3mins.? @ -[No] Was critical care preformed (if so, how long)? @ -[No] Were there social determinants of health that impacted care today? How? (Homel essness, low income, unemployed, alcoholism, drug addiction, transportation, low edu. Level, literacy, decrease access to med. care, shelter, rehab)? @ -[No] Was there de-escalation of care discussed even if they declined (Discuss DNR or withdrawal of care, Hospice)? DNR status @ -[No] What co-morbidities impacted this encounter? (DM, HTN, Smoking, COPD, CAD, Cancer, CVA, ARF, Chemo, Hep., AIDS, mental health diagnosis, sleep apnea, morbid obesity)? @ -[None] Was patient admitted / discharged? Hospital course, mention meds given and route, prescriptions, significant lab abnormalities, going to OR and other pertinent info. @ -[Patient is 84-year-old woman here to have evaluation for episode of near syncope. The patient had just been released from hospital and I suspect that there is element of hypovolemia. She was given some fluids by EMS and did feel better. Of the patient's workup unremarkable here. I discussed the results and the patient is feeling better, would like to go home. Discussed appropriate further care and follow-up as well as return parameters. Undiagnosed new problem with uncertain prognosis? @ -[No] Drug Therapy requiring intensive monitoring for toxicity (Heparin, Nitro, Insulin, Cardizem)? @ -[No] Were any procedures done? @ -[No] Diagnosis/symptom? @ -Acute near syncopal episode Acute, or Chronic, or Acute on Chronic? @ -[Acute Uncomplicated (without systemic symptoms) or Complicated (systemic symptoms)? @ -[Uncomplicated Side effects of treatment? @ -[No] Exacerbation, Progression, or Severe Exacerbation? @ -[No] Poses a threat to life or bodily function? How? (Chest pain, USA, WA, pneumonia, PE, COPD, DKA, ARF, appy, cholecystitis, CVA, Diverticulitis, Homicidal, Suicidal, threat to staff... and all critical care pts) @ -[No] All treatments are based on ideal body weight as in ED triage - Lab Data Result diagrams: 09/19/24 15:56 09/19/24 15:56 Lab Results 09/19/24 09/19/24 09/19/24 Range/Units 15:56 15:56 15:56 WBC 6.64 (4.50-10.00) 10*3/uL RBC 2.96 L (4.10-5.20) 10*6/uL Hgb 9.9 L (12.0-15.0) g/dL Hct 28.5 L (37.2-46.3) % MCV 96.3 (80.0-97.0) fL MCH 33.4 H (27.0-32.0) pg MCHC 34.7 (32.0-37.0) g/dL Plt Count 115 L (140-440) 10*3/uL MPV 10.0 (9.5-12.2) fL Immature Gran % (Auto) 0.6 % Neutrophils % 87.2 % Lymphocytes % 6.8 % Monocytes % 4.1 % Eosinophils % 1.1 % Basophils % 0.2 % Immature Gran # 0.04 (0.00-0.04) 10*3/uL Neutrophils # 5.80 (1.80-7.70) 10*3/uL Lymphocytes # 0.45 L (0.90-5.00) 10*3/uL Monocytes # 0.27 (0.20-1.00) 10*3/uL Eosinophils # 0.07 (0.04-0.35) 10*3/uL Basophils # 0.01 (0.00-0.10) 10*3/uL PT 10.2 (10.0-12.5) sec INR 0.9 (<1.2) APTT 21.0 L (22.0-30.0) sec Sodium 132 L (137-145) mmol/L Potassium 3.7 (3.5-5.1) mmol/L Chloride 104 (98-107) mmol/L Carbon Dioxide 21 L (22-30) mmol/L Anion Gap 7 mmol/L BUN 24 H (7-17) mg/dL Creatinine 0.83 (0.52-1.04) mg/dL Est GFR (CKD-EPI)AfAm 76 (>60 ml/min/1.73 sqM) Est GFR (CKD-EPI)NonAf 66 (>60 ml/min/1.73 sqM) Glucose 111 H (74-99) mg/dL Calcium 8.8 (8.4-10.2) mg/dL Magnesium 1.6 (1.6-2.3) mg/dL Total Bilirubin 1.0 (0.2-1.3) mg/dL AST 25 (14-36) U/L ALT 22 (4-34) U/L Alkaline Phosphatase 58 (38-126) U/L Troponin I (0.000-0.034) ng/mL Total Protein 5.9 L (6.3-8.2) g/dL Albumin 3.5 (3.5-5.0) g/dL 09/19/ Range/Units 15:56 WBC (4.50-10.00) 10*3/uL RBC (4.10-5.20) 10*6/uL Hgb (12.0-15.0) g/dL Hct (37.2-46.3) % MCV (80.0-97.0) fL MCH (27.0-32.0) pg MCHC (32.0-37.0) g/dL Plt Count (140-440) 10*3/uL MPV (9.5-12.2) fL Immature Gran % (Auto) % Neutrophils % % Lymphocytes % % Monocytes % % Eosinophils % % Basophils % % Immature Gran # (0.00-0.04) 10*3/uL Neutrophils # (1.80-7.70) 10*3/uL Lymphocytes # (0.90-5.00) 10*3/uL Monocytes # (0.20-1.00) 10*3/uL Eosinophils # (0.04-0.35) 10*3/uL Basophils # (0.00-0.10) 10*3/uL PT (10.0-12.5) sec INR (<1.2) APTT (22.0-30.0) sec Sodium (137-145) mmol/L Potassium (3.5-5.1) mmol/L Chloride (98-107) mmol/L Carbon Dioxide (22-30) mmol/L Anion Gap mmol/L BUN (7-17) mg/dL Creatinine (0.52-1.04) mg/dL Est GFR (CKD-EPI)AfAm (>60 ml/min/1.73 sqM) Est GFR (CKD-EPI)NonAf (>60 ml/min/1.73 sqM) Glucose (74-99) mg/dL Calcium (8.4-10.2) mg/dL Magnesium (1.6-2.3) mg/dL Total Bilirubin (0.2-1.3) mg/dL AST (14-36) U/L ALT (4-34) U/L Alkaline Phosphatase (38-126) U/L Troponin I <0.012 (0.000-0.034) ng/mL Total Protein (6.3-8.2) g/dL Albumin (3.5-5.0) g/dL Disposition Clinical Impression: Syncope, near Disposition: HOME SELF-CARE Condition: Good Instructions (If sedation given, give patient instructions): Near Syncope (ED) Prescriptions: predniSONE [Deltasone] 20 mg PO BID #8 tab predniSONE [Deltasone] 20 mg PO BID #8 tab Sodium Chloride Tab 1 gm PO BID #6 tablet Sodium Chloride Tab 1 gm PO BID #6 tablet Is patient prescribed a controlled substance at d/c from ED?: No Referrals: Andi Ho MD [Primary Care Provider] - 1-2 days
[2024-09-19 16:08] LABS: Basophils # (A) 0.01 10*3/uL (0.00-0.10); Basophils % (A) 0.2 %; Eosinophils # (A) 0.07 10*3/uL (0.04-0.35); Eosinophils % (A) 1.1 %; HCT 28.5 % (37.2-46.3); HGB 9.9 g/dL (12.0-15.0); Lymphocytes # (A) 0.45 10*3/uL (0.90-5.00); Lymphocytes % (A) 6.8 %; MCH 33.4 pg (27.0-32.0); MCHC 34.7 g/dL (32.0-37.0); MCV 96.3 fL (80.0-97.0); Monocytes # (A) 0.27 10*3/uL (0.20-1.00); Monocytes % (A) 4.1 %; Neutrophils % (A) 87.2 %; Platelet Count 115 10*3/uL (140-440); RBC 2.96 10*6/uL (4.10-5.20); RDW 14.5 % (11.5-14.5); WBC 6.64 10*3/uL (4.50-10.00)
[2024-09-19] MEDS: HYDROcodone/APAP 5-325MG 1 EACH TAB PO STA (16:14)
[2024-09-19 16:17] LABS: INR 0.9 (<1.2); Prothrombin Time 10.2 sec (10.0-12.5)
[2024-09-19 16:19] LABS: ALT 22 U/L (4-34); AST 25 U/L (14-36); African American GFR (CKD) 76 (>60 ml/min/1.73 sqM); Albumin 3.5 g/dL (3.5-5.0); Alkaline Phosphatase 58 U/L (38-126); Anion Gap 7 mmol/L; Blood Urea Nitrogen 24 mg/dL (7-17); Calcium 8.8 mg/dL (8.4-10.2); Carbon Dioxide 21 mmol/L (22-30); Chloride 104 mmol/L (98-107); Glucose 111 mg/dL (74-99); Magnesium 1.6 mg/dL (1.6-2.3); Non-African American GFR(CKD) 66 (>60 ml/min/1.73 sqM); Potassium 3.7 mmol/L (3.5-5.1); Sodium 132 mmol/L (137-145); Total Protein 5.9 g/dL (6.3-8.2)
--- NOTE | 2024-09-19 18:16 | XR ---
EXAMINATION TYPE: XR chest 2V DATE OF EXAM: 09/19/2024 6:03 PM COMPARISON: Chest radiographs from 09/13/2024 CLINICAL INDICATION: Female, 84 years old with history of syncope; [facility] TECHNIQUE: XR chest 2V Frontal and lateral views of the chest. FINDINGS: Lungs/Pleura: There is no evidence of pleural effusion, focal consolidation, or pneumothorax. Pulmonary vascularity: Unremarkable. Heart/mediastinum: Cardiomediastinal silhouette is unremarkable. Musculoskeletal: No acute osseous pathology. IMPRESSION: Cardiomegaly and mild pulmonary vascular congestion. Correlate with BNP for congestive heart failure. [facility], , 09/19/2024 6:14 PM
[2024-09-19 19:51] VITALS: BP 90/65; PULSE 77; RESP 17
== END 2024-09-19 19:51 | disposition home or self-care (01) ==
LOC: EC 15:12
DX: R55 Syncope and collapse (principal); Z87.891 Personal history of nicotine dependence; Z88.5 Allergy status to narcotic agent
CPT/HCPCS: 36415; 71046; 80053; 83735; 84484; 85025; 85610; 85730; 93005; 99285